=== PATIENT | male | born 1945 | race Caucasian/White ===

== ENCOUNTER → 2017-10-27 | Outpatient (CLI) | payer MEDICARE, MEDICAID ==
[~2017-10-27] MED LIST: ACET-2031 PO; ACET650T40 PO; AMLO-101 PO; AMLO-96 PO; AMOX-559 PO; ASPI-757 PO; CIPR500S3 PO; FLUO-202 PO; GABA-549 PO; GABA300S PO; HYDR-2966 PO; INSU100C14 SQ; IRON150C19 PO; LEVI SUBQ; LEVO88TA43 PO; LEVO88TA45 PO; LISI20TA29 PO; METF-420 PO; METO50TA19 PO; MOX400 PO; NOVOLOG SUBQ; SIMV-54 PO; VANC1.5P20 IV
[2017-10-27 14:29] LABS: PLATELET COUNT, AUTOMATED 130 K/uL (150-450)
--- NOTE | 2017-10-27 15:30 | RADIOLOGY IMAGING REPORT ---
FACILITY: [facility] PATIENT NAME: To Booker : 1945 MR: [id number] V: [id number] EXAM DATE: ORDERING PHYSICIAN: [facility] TECHNOLOGIST: Location: [facility] Patient: To Booker : 1945 Visit/Account:[id number] Date of Sevice: 10/27/2017 KIDNEYS EXAMINATION: Renal ultrasound. History: Renal failure, hypertension, diabetic COMPARISON STUDIES: October 09, 2013 FINDINGS: Kidneys: Right kidney- 11.1 x 5.2 x 5.7 cm Left kidney- 11.8 x 6.5 x 6.2 cm Uniform and symmetric blood flow in each kidney by Doppler ultrasound. Hydronephrosis: none Both kidneys have a lobular contour. The resistive index on the right is elevated at 0.82 and on the left 0.87 Bladder: Prevoid volume 249 mL. Post void residual 10 mL. Bilateral ureteral jets are present. Abdominal aorta and IVC: Aorta and IVC are patent by Doppler ultrasound. IMPRESSION: There is a lobular contour to both kidneys and mildly elevated resistive indices bilaterally Report Dictated By: Sheree Santana MD at 10/27/2017 3:24 PM Report E-Signed By: Sheree Santana MD at 10/27/2017 3:26 PM WSN:[id number]
== END ==
LOC: US 03:08
PROVIDERS: ATTEND Internal Medicine Nephrology
DX: Z13.9 Encounter for screening, unspecified (principal); N28.9 Disorder of kidney and ureter, unspecified
CPT/HCPCS: 36415; 76705; 81001; 82040; 82310; 82374; 82435; 82565; 82570; 82947; 84100; 84132; 84156; 84165; 84295; 84520; 85025; 86334

== ENCOUNTER → 2018-01-01 | Outpatient (REF) | payer MEDICARE, MEDICAID ==
[~2018-01-01] MED LIST changes: -METF-420 PO; +METF-421 PO
== END ==
LOC: ZZSENDIN 14:39
PROVIDERS: ATTEND Podiatrist Foot & Ankle Surgery
DX: L97.512 Non-pressure chronic ulcer of other part of right foot with fat layer exposed (principal)
CPT/HCPCS: 87070

== ENCOUNTER 2018-01-05 14:41 | Emergency (ER) | payer MEDICARE, MEDICAID ==
[2018-01-05] MEDS ORDERED: NOVOLOG SUBQ (15:08)
[2018-01-05] MEDS ORDERED: LEVI SUBQ (15:08)
[2018-01-05 15:26] LABS: PLATELET COUNT, AUTOMATED 127 K/uL (150-450)
--- NOTE | 2018-01-05 15:27 | RADIOLOGY IMAGING REPORT ---
FACILITY: [facility] [place] PATIENT NAME: To Booker : 1945 MR: [id number] V: [id number] EXAM DATE: ORDERING PHYSICIAN: JANEE GANDHI TECHNOLOGIST: Location: [facility] [place] Patient: To Booker : 1945 Visit/Account:[id number] Date of Sevice: 01/05/2018 EXAMINATION: Right foot 3 views HISTORY: Wound on right third toe. COMPARISON: None. FINDINGS: Prior amputation of the fifth ray of the right foot at the level of the metatarsal mid shaft. There are hammertoe deformities of the second, third, and fourth toes. Generalized osteopenia, with m ild scattered degenerative changes. No fracture or dislocation. No radiographic evidence of osteomyel itis. Soft tissue swelling along the right foot. Vascular calcifications. IMPRESSION: 1. No radiographic evidence of osteomyelitis in the right foot, including along the third toe. If cli nically indicated, follow-up MRI would be more sensitive for evaluation of possible osteomyelitis. 2. No acute osseous findings. 3. Prior amputation of the fifth ray at the level of the metatarsal mid shaft. Report Dictated By: Austin Saxena MD at 01/05/2018 3:20 PM Report E-Signed By: Austin Saxena MD at 01/05/2018 3:23 PM WSN:[id number]
[2018-01-05] MEDS ORDERED: AMPICILLIN/SULBACT (*) 3 GM VL 3 GM in NS(*) 0.9% 100 ML BAG 100 ML IVPB ONE (15:35)
[2018-01-05] MEDS ORDERED: CEPH500T7 PO (16:00)
--- NOTE | 2018-01-05 16:04 | ER Report ---
History and Physical Time Seen By MD: 14:55 Hx. of Stated Complaint: wound on R middle toe HPI/ROS CHIEF COMPLAINT: Wound to right third toe HISTORY OF PRESENT ILLNESS: 72-year-old male patient presents to emergency room with complaint of a wound to the right third toe. Patient states that he has been seeing wound care for this. He states that he went to wound care today, was evaluated and referred directly to the emergency room. Patient is diabetic, he states that his blood sugars are not well controlled. He denies having any pain. He does have a history of a left [id number] amputation, also has a history of a right fifth toe amputation. Patient denies any fevers, chills, nausea, vomiting or diarrhea. Patient has not taken any medication for this. REVIEW OF SYSTEMS: Respiratory: No cough, no dyspnea. Cardiovascular: No chest pain, no palpitations. Gastrointestinal: No vomiting, no abdominal pain. Musculoskeletal: As noted above Allergies: Coded Allergies: No Known Drug Allergies (Unverified , 01/24/17) Home Meds Active Scripts Cephalexin 500 Mg Tab (KEFLEX 500 MG TAB) 500 Mg Tablet, 500 MG PO TID, #30 TAB Prov:JANEE GANDHI 01/05/18 Amlodipine Besylate (AMLODIPINE BESYLATE) 5 Mg Tablet, 5 MG PO QDAY, #30 TAB Prov:INDRA LANTIGUA DO 01/28/17 Reported Medications Insulin Aspart (NOVOLOG) 100 Unit/Ml Soln, 12 UNIT SUBQ TID 01/05/18 Insulin Detemir (LEVEMIR) 100 Unit/Ml Injs, 30 UNIT SUBQ BID 01/05/18 Aspirin (ASPIRIN) 325 Mg Tablet, 325 MG PO BID Y for PAIN, TAB 01/24/17 Simvastatin (SIMVASTATIN) 40 Mg Tablet, 40 MG PO HS, TAB 01/24/17 Metoprolol Succinate (METOPROLOL SUCCINATE) 50 Mg Tab.er.24h, 1 TAB PO BID, TAB 01/24/17 Hydrochlorothiazide (HYDROCHLOROTHIAZIDE) 25 Mg Tablet, 1 TAB PO QDAY, TAB 01/24/17 Levothyroxine Sodium (SYNTHROID) 88 Mcg Tablet, 75 MCG PO QDAY Take one tablet by mouth every day. 12/06/13 Gabapentin (GABAPENTIN) 300 Mg Capsule, 300 MG PO BID, CAPSULE Take one capsule by mouth twice each day. 12/06/13 Discontinued Reported Medications Insulin Aspart (NOVOLOG) 100 Unit/Ml Soln, 100 UNIT SUBQ 04/30/14 Insulin Detemir (LEVEMIR) 100 Unit/Ml Injs, 25 UNIT SUBQ BID Inject 25 units of Levemir subcutaneously twice each day. 12/06/13 Past Medical/Surgical History Patient has a past medical history of hypertension, hyperlipidemia, diabetes, hypothyroidism. Patient has a past surgical history of left [id number] amputation, right fifth toe amputation. Patient has a family medical history of cancer, stroke, diabetes. Reviewed Nurses Notes: Yes Hx Smoking: No Smoking Status: Never Smoker Exposure to Second Hand Smoke?: No Hx Substance Use Disorder: No Hx Alcohol Use: No Constitutional Vital Sign - Last 24 Hours 01/05/18 01/05/18 01/05/18 01/05/18 14:41 14:47 14:47 14:56 Temp 97.6 Pulse ??? 63 60 Resp 16 B/P (MAP) 157/80 157/80 (105) Pulse Ox 96 94 O2 Delivery Room Air 01/05/18 01/05/18 01/05/18 01/05/18 15:11 15:26 15:41 15:56 Pulse 62 59 59 58 Pulse Ox 92 92 93 93 01/05/18 01/05/18 01/05/18 01/05/18 15:59 16:04 16:19 16:29 Pulse 56 57 B/P (MAP) 131/79 (96) 141/81 (101) Pulse Ox 93 91 01/05/18 16:34 Pulse ??? Intake and Output 01/05/18 01/05/18 01/06/18 15:00 23:00 07:00 Intake Total 100 ml Balance 100 ml Physical Exam General Appearance: The patient is alert, has no immediate need for airway protection and no current signs of toxicity. ENT: Tympanic membranes are pearly-serna, auditory canals are patent, mucous membranes are moist. Respiratory: Chest is non tender, lungs are clear to auscultation. Cardiac: regular rate and rhythm Gastrointestinal: Abdomen is soft and non tender, no masses, bowel sounds normal. Musculoskeletal: Neck: Neck is supple and non tender. Extremities have full range of motion and are non tender. Skin: No rashes or lesions. Right third toe is erythematous, swollen, has a large wound on the dorsal aspect. DIFFERENTIAL DIAGNOSIS: After history and physical exam differential diagnosis was considered for cellulitis, osteomyelitis. Medical Decision Making Data Points Result Diagram: 01/05/18 1512 01/05/18 1512 Laboratory Hematology Test 01/05/18 15:12 Red Blood Count 4.05 M/uL (4.00-5.60) Mean Corpuscular Volume 90.8 fL (80.0-96.0) Mean Corpuscular Hemoglobin 31.2 pg (26.0-33.0) Mean Corpuscular Hemoglobin Concent 34.4 g/dL (32.0-36.0) Red Cell Distribution Width 13.7 % (11.5-14.5) Mean Platelet Volume 8.1 fL (7.2-11.1) Neutrophils (%) (Auto) 68.9 % (39.4-72.5) Lymphocytes (%) (Auto) 18.1 % (17.6-49.6) Monocytes (%) (Auto) 8.9 % (4.1-12.4) Eosinophils (%) (Auto) 3.0 % (0.4-6.7) Basophils (%) (Auto) 1.1 % (0.3-1.4) Nucleated RBC Relative Count (auto) 0.0 /100WBC Neutrophils # (Auto) 3.5 K/uL (2.0-7.4) Lymphocytes # (Auto) 0.9 K/uL (1.3-3.6) Monocytes # (Auto) 0.5 K/uL (0.3-1.0) Eosinophils # (Auto) 0.2 K/uL (0.0-0.5) Basophils # (Auto) 0.1 K/uL (0.0-0.1) Nucleated RBC Absolute Count (auto) 0.00 K/uL Sodium Level 135 mmol/L (137-145) Potassium Level 4.6 mmol/L (3.5-5.0) Chloride Level 101 mmol/L (98-107) Carbon Dioxide Level 18 mmol/L (22-30) Blood Urea Nitrogen 56 mg/dl (9-21) Creatinine 2.80 mg/dl (0.66-1.25) Glomerular Filtration Rate Calc 22.5 Random Glucose 484 mg/dl (75-110) Calcium Level 8.6 mg/dl (8.4-10.2) Total Bilirubin 0.6 mg/dl (0.2-1.3) Aspartate Amino Transf (AST/SGOT) 16 U/L (0-35) Alanine Aminotransferase (ALT/SGPT) 23 U/L (0-56) Alkaline Phosphatase 171 U/L (0-126) Total Protein 6.2 gm/dl (6.3-8.2) Albumin 3.5 g/dl (3.5-5.0) Chemistry Test 01/05/18 15:12 White Blood Count 5.1 k/uL (4.5-11.0) Red Blood Count 4.05 M/uL (4.00-5.60) Hemoglobin 12.6 g/dL (14.0-18.0) Hematocrit 36.8 % (42.0-52.0) Mean Corpuscular Volume 90.8 fL (80.0-96.0) Mean Corpuscular Hemoglobin 31.2 pg (26.0-33.0) Mean Corpuscular Hemoglobin Concent 34.4 g/dL (32.0-36.0) Red Cell Distribution Width 13.7 % (11.5-14.5) Platelet Count 127 K/uL (150-450) Mean Platelet Volume 8.1 fL (7.2-11.1) Neutrophils (%) (Auto) 68.9 % (39.4-72.5) Lymphocytes (%) (Auto) 18.1 % (17.6-49.6) Monocytes (%) (Auto) 8.9 % (4.1-12.4) Eosinophils (%) (Auto) 3.0 % (0.4-6.7) Basophils (%) (Auto) 1.1 % (0.3-1.4) Nucleated RBC Relative Count (auto) 0.0 /100WBC Neutrophils # (Auto) 3.5 K/uL (2.0-7.4) Lymphocytes # (Auto) 0.9 K/uL (1.3-3.6) Monocytes # (Auto) 0.5 K/uL (0.3-1.0) Eosinophils # (Auto) 0.2 K/uL (0.0-0.5) Basophils # (Auto) 0.1 K/uL (0.0-0.1) Nucleated RBC Absolute Count (auto) 0.00 K/uL Glomerular Filtration Rate Calc 22.5 Calcium Level 8.6 mg/dl (8.4-10.2) Total Bilirubin 0.6 mg/dl (0.2-1.3) Aspartate Amino Transf (AST/SGOT) 16 U/L (0-35) Alanine Aminotransferase (ALT/SGPT) 23 U/L (0-56) Alkaline Phosphatase 171 U/L (0-126) Total Protein 6.2 gm/dl (6.3-8.2) Albumin 3.5 g/dl (3.5-5.0) EKG/Imaging Imaging EXAMINATION: Right foot 3 views HISTORY: Wound on right third toe. COMPARISON: None. FINDINGS: Prior amputation of the fifth ray of the right foot at the level of the metatarsal mid shaft. There are hammertoe deformities of the second, third, and fourth toes. Generalized osteopenia, with mild scattered degenerative changes. No fracture or dislocation. No radiographic evidence of osteomyelitis. Soft tissue swelling along the right foot. Vascular calcifications. IMPRESSION: 1. No radiographic evidence of osteomyelitis in the right foot, including along the third toe. If clinically indicated, follow-up MRI would be more sensitive for evaluation of possible osteomyelitis. 2. No acute osseous findings. 3. Prior amputation of the fifth ray at the level of the metatarsal mid shaft. Report Dictated By: Austin Saxena MD at 01/05/2018 3:20 PM Report E-Signed By: Austin Saxena MD at 01/05/2018 3:23 PM ED Course/Re-evaluation ED Course Patient was admitted to an exam room, history and physical were obtained. Differential diagnoses were considered. On examination patient has a wound to the right third toe. A CBC, CMP, x-ray of the right foot were done. Lab results were unremarkable, patient did have an x-ray which showed skin breakdown with no bony involvement. I discussed the case with the patient and his . I believe that this is fortunately still located in the skin only. Patient did receive a dose of ampicillin/sulbactam here in the emergency room. Patient will be started on Keflex. Patient does have poor renal function as a result of that we will do the Keflex 3 times a day. Patient should follow-up with his primary care provider early next week. He is to follow-up with wound care on Monday. I did press upon the patient that I felt there is very important that he is evaluated in the early part of next week. Patient verbalized understanding and agreement. Decision to Disposition Date: January 05, 2018 Decision to Disposition Time: 16:03 Depart Departure Latest Vital Signs Vital Signs Date Time Temp Pulse Resp B/P (MAP) Pulse Ox O2 Delivery O2 Flow Rate FiO2 01/05/18 16:34 ??? 01/05/18 16:29 141/81 (101) 01/05/18 16:19 91 01/05/18 14:47 97.6 16 Room Air Impression: Primary Impression: Open wound of third toe of right foot Condition: Improved Disposition: HOME OR SELF-CARE New Scripts Cephalexin 500 Mg Tab (KEFLEX 500 MG TAB) 500 Mg Tablet 500 MG PO TID, #30 TAB Prov: JANEE GANDHI 01/05/18 Patient Instructions: Wound Infection (ED) Additional Instructions: Continue with normal activity. Return to the ER if condition worsens. Follow up with the clinic in [place] or Dr. Carreno on Monday or Monday next week. Follow up with Physical Therapy for wound care next week as previously scheduled , I believe next Monday. Take Antibiotics as directed. Continue other normal medications. Problem Qualifiers Primary Impression: Open wound of third toe of right foot Encounter type: initial encounter Qualified Codes: S91.104A - Unspecified open wound of right lesser toe(s) without damage to nail, initial encounter JANEE GANDHI January 05, 2018 16:04
[2018-01-05 16:29] VITALS: BP 141/81
== END 2018-01-05 16:35 | disposition home or self-care (01) ==
LOC: ER 14:42
DX: S91.104A Unspecified open wound of right lesser toe(s) without damage to nail, initial encounter (principal)
CPT/HCPCS: 73630; 85025; 96365; 99284; J0295; J7050; 82040; 82247; 82310; 82374; 82435; 82565; 82947; 84075; 84132; 84155; 84295; 84450; 84460; 84520

== ENCOUNTER 2018-01-26 14:30 | Outpatient (RCR) | payer MEDICARE, MEDICAID ==
--- NOTE | 2017-12-16 07:53 | PT INITIAL EVALUATION ---
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 The patient reports that he was seen by Dr. Carreno earlier this week and referred for PT wound care to include wound on dorsum of R) 3rd toe as well as blister on the R) heel. The pt has a history of L) transtibial amputation, which he reports started as "a blister that went into the bone." REHAB PROBLEM LIST: Open wound of R) 3rd toe, blister of R) plantar heel PREVIOUS MEDICAL HISTORY: PMH of HTN, DM-II, CKD-IV, Dyslipidemia, PVD s/p L-TTA OBJECTIVE: Wound measurements: R) 3rd toe, dorsal DIP joint: 0.6 cm L x 0.5 cm W x 0.3 cm D Blister of R) plantar heel: 2cm L x 2 cm W ASSESSMENT: Pt presents with wound dressing intact from placement on 12/12/17. There is a pocket of drainage under the calcium alginate over the wound bed. PT completed conservative, selective debridement of non-viable tissue and periwound callous to the depth of the deep tissue. Wound base revealed with a hard end feel present at the base. The wound was cleansed with sterile saline and gauze and then packed with moistened collagen with AG. Wound was covered with a speciality absorptive pad, held in place with a gauze roll. There is a 2cm L x 2cm W blister on the R) heel that is intact at this time with no surrounding erythema. This was covered with a tegaderm dressing to allow for further monitoring. PT instructed the patient and patient's spouse on effective donning/doffing of sock to prevent disruption of the dressing. The pt reports that he feels that his large hunting boots allow for increased room in the toe box, but he does report that his feet are getting "hot". PT suggested following up with Dr. Carreno if he is unable to find a functional pair of shoes that effectively offload the area. The patient will benefit from skilled PT wound care to include sharps debridement as well advanced wound care product selection and application to facilitate wound healing. Of note, the patient's reports that the patient had his blood drawn at the [facility] yesterday with a blood glucose measured at 938. The patient was recommended for admission to [facility], but refused. He reports that he plans to continue to take his medications and will f/u with PCP on Monday. A message was left with Dr. Carreno regarding change in patient's medical status. Short Term Goals 1: Pt to maintain clean, dry and intact dressing in between wound care visits. 2: Wound to demonstrate 100% granulation tissue across the wound base with no s/ s of infection. 3: Wound to gradually epithelialize from the edges inwards and demonstrate 100% closure. 4: Pt and spouse to be educated on preventative foot care to prevent further breakdown. 5: Pt to follow up with appropriate medical personnel for continued management of co-morbidities Patient's Goals Wound healing PLAN: Patient to be seen for skilled PT wound care to include sharps debridement as well advanced wound care product selection and application to facilitate wound healing 1-2x/week for up to 90 days Thank you for this referral. If you have any questions, comments, or concerns about this report or plan, please contact me at . Kyara Calderon, PT, DPT CYNDYD
[~2018-01-26 14:30] MED LIST changes: +CEPH500T7 PO
--- NOTE | 2018-02-23 16:18 | PT PLAN OF CARE ---
Physician: Dr. 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 GOALS: 1: Pt to maintain clean, dry and intact dressing in between wound care visits. 2: Wound to demonstrate 100% granulation tissue across the wound base with no s/ s of infection. 3: Wound to gradually epithelialize from the edges inwards and demonstrate 100% closure. 4: Pt and spouse to be educated on preventative foot care to prevent further breakdown. 5: Pt to follow up with appropriate medical personnel for continued management of co-morbidities PATIENT'S GOAL: Wound healing Status of Patient's Goals: Not met; pt demos inability to comply with treatment and has not been seen in 4 weeks, despite attempts to reschedule his visits and coordinate care with PCP. Patient Compliance: Poor Prognosis: Poor Reasons for continuing therapy: None; unable to establish contact with pt, as he does not have voicemail set up. Pt has not attended his regularly scheduled appointments for the past 4 weeks. Thank you for this referral. If you have any questions, comments, or concerns about this report or plan, please contact me at . Daniela Winters, PT, MPT [facility]
== END 2018-01-26 18:00 | disposition home or self-care (01) ==
LOC: PT 14:30
PROVIDERS: ATTEND Podiatrist Foot & Ankle Surgery
DX: L97.512 Non-pressure chronic ulcer of other part of right foot with fat layer exposed (principal); E11.9 Type 2 diabetes mellitus without complications; N18.4 Chronic kidney disease, stage 4 (severe); E78.5 Hyperlipidemia, unspecified
CPT/HCPCS: 97161

== ENCOUNTER 2018-05-13 07:51 | Emergency (ER) | payer MEDICARE, MEDICAID ==
[~2018-05-13 07:51] MED LIST changes: +AMLO-111 PO; -AMLO-96 PO; -METF-421 PO; +METF-452 PO
[2018-05-13] MEDS ORDERED: LISI-374 PO (08:09)
[2018-05-13] MEDS ORDERED: FURO-45 PO (08:09)
--- NOTE | 2018-05-13 08:09 | ER Report ---
History and Physical Time Seen By MD: 08:08 Hx. of Stated Complaint: PT PRESENTS WITH ULCRERS ON HIS R FOOT. 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 He presents to the ER this morning with an ulcer on his right heel. Unsure how long this has been there. Sensation is poor from diabetic neuropathy. He has been feeling pain for about a week now, so ulcer has probably been there for several weeks. Came to attention when having his toenails cut today and smelled a bad smell there. He has toenails cut about once a month. Sugars variable, but often run high. 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 He denies any other problems. REVIEW OF SYSTEMS: Constitutional: No fever or chills. Eyes: No vision changes. ENT: No sore throat. No congestion. Cardiovascular: No chest pain. No palpitations. Respiratory: No cough. No shortness of breath. Gastrointestinal: No abdominal pain. No nausea or vomiting. Genitourinary: No dysuria. No frequency Musculoskeletal: No back pain. No other extremity pain Skin: No rashes or other skin problems. Neurological: Neuropathy as noted. Allergies: Coded Allergies: No Known Drug Allergies (Unverified , 05/13/18) Home Meds Active Scripts Sulfamethoxazole/Trimet 800-160 Mg Tab (BACTRIM DS TABLET) 1 Each Tablet, 1 TAB PO Q12H, #20 TAB 0 Refills Prov:NATALY EASLEY MD 05/13/18 Cephalexin 500 Mg Tab (KEFLEX 500 MG TAB) 500 Mg Tablet, 500 MG PO TID, #30 TAB Prov:JANEE GANDHI 01/05/18 Amlodipine Besylate (AMLODIPINE BESYLATE) 5 Mg Tablet, 5 MG PO QDAY, #30 TAB Prov:INDRA LANTIGUA DO 01/28/17 Reported Medications Lisinopril (LISINOPRIL) 40 Mg Tablet, 40 MG PO QDAY, TAB 05/13/18 Furosemide (FUROSEMIDE) 20 Mg Tablet, 1 TAB PO QDAY, TAB 05/13/18 Insulin Aspart (NOVOLOG) 100 Unit/Ml Soln, 12 UNIT SUBQ TID 01/05/18 Insulin Detemir (LEVEMIR) 100 Unit/Ml Injs, 30 UNIT SUBQ BID 01/05/18 Aspirin (ASPIRIN) 325 Mg Tablet, 325 MG PO BID PRN for PAIN, TAB 01/24/17 Simvastatin (SIMVASTATIN) 40 Mg Tablet, 40 MG PO HS, TAB 01/24/17 Metoprolol Succinate (METOPROLOL SUCCINATE) 50 Mg Tab.er.24h, 1 TAB PO BID, TAB 01/24/17 Hydrochlorothiazide (HYDROCHLOROTHIAZIDE) 25 Mg Tablet, 1 TAB PO QDAY, TAB 01/24/17 Levothyroxine Sodium (SYNTHROID) 88 Mcg Tablet, 100 MCG PO QDAY Take one tablet by mouth every day. 12/06/13 Gabapentin (GABAPENTIN) 300 Mg Capsule, 300 MG PO BID, CAPSULE Take one capsule by mouth twice each day. 12/06/13 Reviewed Nurses Notes: Yes Hx Smoking: No Smoking Status: Never Smoker Exposure to Second Hand Smoke?: No Hx Substance Use Disorder: No Hx Alcohol Use: No Constitutional Vital Sign - Last 24 Hours 05/13/18 05/13/18 05/13/18 05/13/18 07:51 07:55 07:56 08:00 Temp 97.7 Pulse ??? 49 Resp 20 B/P (MAP) 178/94 178/94 (122) 165/89 (114) Pulse Ox 97 O2 Delivery Room Air 05/13/18 05/13/18 08:21 08:51 Pulse 47 48 Resp 9 9 Pulse Ox 95 95 Physical Exam General Appearance: The patient is alert. No acute distress. Non-toxic in appearance. Eyes: Pupils are equal, round. No pallor, injection or icterus. ENT: Mucous membranes are moist. Respiratory: Breathing easily and unlabored. Lungs are clear to auscultation. Cardiovascular: Bradycardia, but regular. No murmurs, gallops or rubs. Capillary refill mildly slowed in right foot. No edema. Gastrointestinal: Abdomen is soft and non tender. Nondistended. Normal active bowel sounds. Neurological: Alert and oriented x3. Has some sensation in foot. Some pain with palpating the ulcer on the heel. Skin: Dry skin. Ulcer of the right heel. deep to muscle and fascia on heel. Some undermining of the skin. Foul smell. No discharge noted. Musculoskeletal: Mild discomfort with palpation of the ulcer, but no major pain. Full range of motion. DIFFERENTIAL DIAGNOSIS: After history and physical exam, differential diagnosis was considered for diabetic foot ulcer Medical Decision Making Data Points Result Diagram: 05/13/18 0841 05/13/18 0841 Laboratory Hematology Test 05/13/18 08:39 05/13/18 08:41 Whole Blood Glucose 124 mg/DL (75-110) Red Blood Count 4.91 M/uL (4.00-5.60) Mean Corpuscular Volume 89.6 fL (80.0-96.0) Mean Corpuscular Hemoglobin 30.1 pg (26.0-33.0) Mean Corpuscular Hemoglobin Concent 33.6 g/dL (32.0-36.0) Red Cell Distribution Width 13.8 % (11.5-14.5) Mean Platelet Volume 8.5 fL (7.2-11.1) Neutrophils (%) (Auto) 77.5 % (39.4-72.5) Lymphocytes (%) (Auto) 12.7 % (17.6-49.6) Monocytes (%) (Auto) 6.2 % (4.1-12.4) Eosinophils (%) (Auto) 2.4 % (0.4-6.7) Basophils (%) (Auto) 1.2 % (0.3-1.4) Nucleated RBC Relative Count (auto) 0.1 /100WBC Neutrophils # (Auto) 6.8 K/uL (2.0-7.4) Lymphocytes # (Auto) 1.1 K/uL (1.3-3.6) Monocytes # (Auto) 0.5 K/uL (0.3-1.0) Eosinophils # (Auto) 0.2 K/uL (0.0-0.5) Basophils # (Auto) 0.1 K/uL (0.0-0.1) Nucleated RBC Absolute Count (auto) 0.01 K/uL Erythrocyte Sedimentation Rate 10 mm/HOUR (0-20) Sodium Level 138 mmol/L (137-145) Potassium Level 4.1 mmol/L (3.5-5.0) Chloride Level 101 mmol/L (98-107) Carbon Dioxide Level 24 mmol/L (22-30) Blood Urea Nitrogen 52 mg/dl (9-21) Creatinine 2.50 mg/dl (0.66-1.25) Glomerular Filtration Rate Calc 25.6 Random Glucose 128 mg/dl (75-110) Calcium Level 8.8 mg/dl (8.4-10.2) Total Bilirubin 0.6 mg/dl (0.2-1.3) Aspartate Amino Transf (AST/SGOT) 16 U/L (0-35) Alanine Aminotransferase (ALT/SGPT) 24 U/L (0-56) Alkaline Phosphatase 162 U/L (0-126) C-Reactive Protein 1.6 mg/dl (<1.0) Total Protein 7.4 g/dl (6.3-8.2) Albumin 4.0 g/dl (3.5-5.0) Chemistry Test 05/13/18 08:39 05/13/18 08:41 Whole Blood Glucose 124 mg/DL (75-110) White Blood Count 8.8 k/uL (4.5-11.0) Red Blood Count 4.91 M/uL (4.00-5.60) Hemoglobin 14.8 g/dL (14.0-18.0) Hematocrit 44.0 % (42.0-52.0) Mean Corpuscular Volume 89.6 fL (80.0-96.0) Mean Corpuscular Hemoglobin 30.1 pg (26.0-33.0) Mean Corpuscular Hemoglobin Concent 33.6 g/dL (32.0-36.0) Red Cell Distribution Width 13.8 % (11.5-14.5) Platelet Count 178 K/uL (150-450) Mean Platelet Volume 8.5 fL (7.2-11.1) Neutrophils (%) (Auto) 77.5 % (39.4-72.5) Lymphocytes (%) (Auto) 12.7 % (17.6-49.6) Monocytes (%) (Auto) 6.2 % (4.1-12.4) Eosinophils (%) (Auto) 2.4 % (0.4-6.7) Basophils (%) (Auto) 1.2 % (0.3-1.4) Nucleated RBC Relative Count (auto) 0.1 /100WBC Neutrophils # (Auto) 6.8 K/uL (2.0-7.4) Lymphocytes # (Auto) 1.1 K/uL (1.3-3.6) Monocytes # (Auto) 0.5 K/uL (0.3-1.0) Eosinophils # (Auto) 0.2 K/uL (0.0-0.5) Basophils # (Auto) 0.1 K/uL (0.0-0.1) Nucleated RBC Absolute Count (auto) 0.01 K/uL Erythrocyte Sedimentation Rate 10 mm/HOUR (0-20) Glomerular Filtration Rate Calc 25.6 Calcium Level 8.8 mg/dl (8.4-10.2) Total Bilirubin 0.6 mg/dl (0.2-1.3) Aspartate Amino Transf (AST/SGOT) 16 U/L (0-35) Alanine Aminotransferase (ALT/SGPT) 24 U/L (0-56) Alkaline Phosphatase 162 U/L (0-126) C-Reactive Protein 1.6 mg/dl (<1.0) Total Protein 7.4 g/dl (6.3-8.2) Albumin 4.0 g/dl (3.5-5.0) Microbiology Microbiology Date/Time Source Procedure Growth Status 05/13/18 09:07 Blood Blood Culture - Preliminary NO GROWTH SO FAR, SET LATE. REINCUBATED Resulted 05/13/18 08:41 Blood Blood Culture - Preliminary NO GROWTH SO FAR, SET LATE. REINCUBATED Resulted EKG/Imaging Imaging CALCANEUS (HEEL) RIGHT HISTORY: Diabetic ulcer COMPARISON: 01/05/2018 FINDINGS: No evidence of acute fracture or dislocation. No destructive bone lesion. No aggressive periostitis. Bohler angle is well maintained. Dorsal spurring at the talonavicular joint. Moderate arterial calcifications. IMPRESSION: 1. No destructive bone lesion or aggressive periostitis. Report Dictated By: Zheng Gauthier MD at 05/13/2018 9:22 AM ED Course/Re-evaluation Clinical Indication for ER IV: Hydration, IV Access ED Course Labs show a normal white count and ESR. Mild elevation of CRP. Renal insufficiency from diabetic nephropathy. Overall doing okay. Recommended follow- up tomorrow with the wound clinic and to call dr. Patrick's office for follow- up. Started on Bactrim DS and given IV Vancomycin 1g today. Will repeat the Vancomycin tomorrow as well. X-ray of the heel is negative for signs of osteomyelitis. Spent some time with sharp debridement of surrounding skin, but left the wound base alone. Cultures of blood and wound obtained. Decision to Disposition Date: May 13, 2018 Decision to Disposition Time: 10:45 Depart Departure Latest Vital Signs Vital Signs Date Time Temp Pulse Resp B/P (MAP) Pulse Ox O2 Delivery O2 Flow Rate FiO2 05/13/18 08:51 48 9 95 05/13/18 08:00 165/89 (114) 05/13/18 07:55 97.7 Room Air Impression: Primary Impression: Diabetic foot ulcer Condition: Improved Disposition: HOME OR SELF-CARE New Scripts Sulfamethoxazole/Trimet 800-160 Mg Tab (BACTRIM DS TABLET) 1 Each Tablet 1 TAB PO Q12H, #20 TAB 0 Refills Prov: NATALY EASLEY MD 05/13/18 Patient Instructions: Diabetic Foot Ulcers (ED) Additional Instructions: Take the antibiotic Bactrim DS twice a day for 10 days. Call and make an appointment to see the wound care nurse tomorrow here at the hospital. Call Dr. Patrick's office to make an appointment, hopefully for early in the week depending on his availability. We would like to have you get another dose of IV Vancomycin tomorrow while here at the hospital. Wash the wound with soap and water tonight and apply another bandage. 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
[2018-05-13 08:52] LABS: PLATELET COUNT, AUTOMATED 178 K/uL (150-450)
--- NOTE | 2018-05-13 09:40 | RADIOLOGY IMAGING REPORT ---
FACILITY: [facility] [place]IENT NAME: To Booker : 1945 MR: [id number] V: [id number] EXAM DATE: ORDERING PHYSICIAN: NATALY EASLEY TECHNOLOGIST: Location: [facility] [place] Patient: To Booker : 1945 Visit/Account:[id number] Date of Sevice: 05/13/2018 CALCANEUS (HEEL) RIGHT HISTORY: Diabetic ulcer COMPARISON: 01/05/2018 FINDINGS: No evidence of acute fracture or dislocation. No destructive bone lesion. No aggressive per iostitis. Bohler angle is well maintained. Dorsal spurring at the talonavicular joint. Moderate arter ial calcifications. IMPRESSION: 1. No destructive bone lesion or aggressive periostitis. Report Dictated By: Zheng Gauthier MD at 05/13/2018 9:22 AM Report E-Signed By: Zheng Gauthier MD at 05/13/2018 9:35 AM WSN:[id number]
[2018-05-13] MEDS ORDERED: TRIMETH/SULFA DS 160-800MG TAB PO ONE (10:05)
[2018-05-13] MEDS ORDERED: VANCOMYCIN 1 GM ADDVIAL 1 GM in NS(*) 0.9% 250 ML ADDVAN BAG 250 ML IVPB ONE (10:05)
[2018-05-13] MEDS ORDERED: SULF-198 PO (10:48)
[2018-05-13 11:00] VITALS: BP 155/73
== END 2018-05-13 11:25 | disposition home or self-care (01) ==
LOC: ER 08:19
DX: E11.621 Type 2 diabetes mellitus with foot ulcer (principal); B95.61 Methicillin susceptible Staphylococcus aureus infection as the cause of diseases classified elsewhere
CPT/HCPCS: 36415; 36416; 73650; 82948; 85025; 85651; 86140; 87040; 87070; 87073; 96365; 99283; A9270; J3370; J7050; 82040; 82247; 82310; 82374; 82435; 82565; 82947; 84075; 84132; 84155; 84295; 84450; 84460; 84520; 87077; 87186

== ENCOUNTER 2018-05-18 20:52 | Inpatient (IN) | payer MEDICARE ==
[~2018-05-18] VITALS: Ht 185.4 cm; Wt 102.7 kg
[~2018-05-18 20:52] MED LIST changes: +FURO-45 PO; +LISI-374 PO; +SULF-198 PO
[2018-05-18] MEDS ORDERED: NS(*) 0.9% 1000 ML BAG 1,000 ML IV ONE ×2 (21:24→22:30)
--- NOTE | 2018-05-18 21:24 | ER Report ---
History and Physical Time Seen By : 21:21 Hx. of Stated Complaint: PATIENT HAS INCREASED PAIN AND REDNESS IN HIS RIGHT FOOT, BLOOD SUGARS ARE "OUT OF CONTROL"; PATIENT WAS SEEN IN ER ON MONDAY AND CAME BACK FOR A FOLLOW UP ON MON. WITH DR. CRAMER; HPI/ROS CHIEF COMPLAINT: Increased redness and swelling in his right foot HISTORY OF PRESENT ILLNESS: 72-year-old male diabetic presents to the ER complaining of increased redness and swelling to his right foot. Patient's undergoing treatment for diabetic ulcer of his right heel. He was seen by Dr. Patrick a few days ago. There is a consultation from wound care. He was seen in the ER prior to that on 05/13/18 had extensive evaluation. X-rays were unremarkable for evidence of osteal. His white count was normal. He received vancomycin that day and the following day IV. He was discharged with prescription for Bactrim DS. Patient's been doing well until tonight when he noticed significant erythema over the forefoot extending up into his leg. He's been feeling lethargic. Having fever and chills. He also describes Rigor today prior to coming in. On arrival is a fever to 104 and his glucoses over 500. 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 REVIEW OF SYSTEMS: Respiratory: No cough, no dyspnea. Cardiovascular: No chest pain, no palpitations. Gastrointestinal: No vomiting, no abdominal pain. Musculoskeletal: No back pain. Allergies: Coded Allergies: No Known Drug Allergies (Unverified , 05/19/18) Home Meds Active Scripts Sulfamethoxazole/Trimet 800-160 Mg Tab (BACTRIM DS TABLET) 1 Each Tablet, 1 TAB PO Q12H, #20 TAB 0 Refills Prov:NATALY EASLEY MD 05/13/18 Cephalexin 500 Mg Tab (KEFLEX 500 MG TAB) 500 Mg Tablet, 500 MG PO TID, #30 TAB Prov:JANEE GANDHI 01/05/18 Amlodipine Besylate (AMLODIPINE BESYLATE) 5 Mg Tablet, 5 MG PO QDAY, #30 TAB Prov:INDRA LANTIGUA DO 01/28/17 Reported Medications Insulin Detemir (LEVEMIR) 100 Unit/Ml Injs, 33 UNIT SUBQ BID 05/19/18 Insulin Aspart (NOVOLOG) 100 Unit/Ml Soln, 14 UNIT SUBQ TID 05/19/18 Gabapentin (GABAPENTIN) 300 Mg Capsule, 300 MG PO DAILY, CAPSULE 05/19/18 Lisinopril (LISINOPRIL) 40 Mg Tablet, 40 MG PO QDAY, TAB 05/13/18 Furosemide (FUROSEMIDE) 20 Mg Tablet, 1 TAB PO QDAY, TAB 05/13/18 Aspirin (ASPIRIN) 325 Mg Tablet, 325 MG PO BID PRN for PAIN, TAB 01/24/17 Simvastatin (SIMVASTATIN) 40 Mg Tablet, 40 MG PO HS, TAB 01/24/17 Metoprolol Succinate (METOPROLOL SUCCINATE) 50 Mg Tab.er.24h, 1 TAB PO BID, TAB 01/24/17 Hydrochlorothiazide (HYDROCHLOROTHIAZIDE) 25 Mg Tablet, 1 TAB PO QDAY, TAB 01/24/17 Levothyroxine Sodium (SYNTHROID) 88 Mcg Tablet, 100 MCG PO QDAY Take one tablet by mouth every day. 12/06/13 Discontinued Reported Medications Insulin Aspart (NOVOLOG) 100 Unit/Ml Soln, 12 UNIT SUBQ TID 01/05/18 Insulin Detemir (LEVEMIR) 100 Unit/Ml Injs, 30 UNIT SUBQ BID 01/05/18 Gabapentin (GABAPENTIN) 300 Mg Capsule, 300 MG PO BID, CAPSULE Take one capsule by mouth twice each day. 12/06/13 Past Medical/Surgical History Patient has a past medical history of hypertension, hyperlipidemia, diabetes, hypothyroidism. Patient has a past surgical history of left [id number] amputation, right fifth toe amputation. Patient has a family medical history of cancer, stroke, diabetes. Reviewed Nurses Notes: Yes Old Medical Records Reviewed: Yes Hx Smoking: No Smoking Status: Never Smoker Exposure to Second Hand Smoke?: No Hx Substance Use Disorder: No Hx Alcohol Use: No Constitutional Vital Sign - Last 24 Hours 05/18/18 05/18/18 05/18/18 05/18/18 20:58 21:06 21:07 21:15 Temp 104.1 Pulse 87 Resp 21 B/P (MAP) 160/82 (108) 160/82 145/78 (100) Pulse Ox 91 O2 Delivery Nasal Cannula O2 Flow Rate 2.0 05/18/18 05/18/18 05/18/18 05/18/18 21:22 21:30 21:45 21:52 Pulse 87 88 Resp 16 15 B/P (MAP) 144/85 (104) 150/79 (102) Pulse Ox 93 93 05/18/18 05/18/18 05/18/18 05/18/18 22:00 22:15 22:22 22:30 Pulse 86 Resp 21 B/P (MAP) 141/69 (93) 118/72 (87) 122/71 (88) Pulse Ox 93 05/18/18 05/18/18 05/18/18 05/18/18 22:45 22:45 23:00 23:15 Pulse 87 85 Resp 14 16 B/P (MAP) 145/68 (93) 145/68 (93) 132/76 (94) 120/58 (78) Pulse Ox 92 95 05/19/18 05/19/18 05/19/18 05/19/18 01:00 01:15 01:30 01:45 Pulse 84 82 Resp 21 21 B/P (MAP) 118/75 (89) 121/71 (88) 127/72 (90) 123/77 (92) Pulse Ox 89 91 05/19/18 01:55 Pulse 83 Physical Exam General Appearance: The patient is alert, has no immediate need for airway protection and no current signs of toxicity. Lethargic, fever to 104. [place] oriented 3, HEENT Pupils equal and round no injection. Oropharynx with dry mucous membranes, no erythema or exudate Respiratory: Chest is non tender, lungs are clear to auscultation. No wheezing or rails Cardiac: regular rate and rhythm, no murmur Gastrointestinal: Abdomen is soft and non tender, no masses, bowel sounds normal. Musculoskeletal: Neck: Neck is supple and non tender. No lymphadenopathy Extremities have full range of motion and are non tender. BKA left lower extremity, right lower extremity with gross erythema over the forefoot extending just above the ankle. It is warm to the touch. 1 plus edema noted. There is a large heel ulcer which appears without signs of infection Skin: No rashes or lesions. DIFFERENTIAL DIAGNOSIS: After history and physical exam differential diagnosis was considered for adult fever including but not limited to viral syndromes including influenza, urinary tract infection, cellulitis, osteomyelitis, p neumonia and sepsis. Medical Decision Making Data Points Result Diagram: 05/18/18210905/18/182109 Laboratory Hematology Test 05/18/18 21:10 05/19/18 00:58 05/19/18 01:11 Red Blood Count 4.31 M/uL (4.00-5.60) Mean Corpuscular Volume 89.2 fL (80.0-96.0) Mean Corpuscular Hemoglobin 29.6 pg (26.0-33.0) Mean Corpuscular Hemoglobin Concent 33.2 g/dL (32.0-36.0) Red Cell Distribution Width 14.3 % (11.5-14.5) Mean Platelet Volume 8.9 fL (7.2-11.1) Neutrophils (%) (Auto) 88.0 % (39.4-72.5) Lymphocytes (%) (Auto) 3.5 % (17.6-49.6) Monocytes (%) (Auto) 5.5 % (4.1-12.4) Eosinophils (%) (Auto) 2.3 % (0.4-6.7) Basophils (%) (Auto) 0.7 % (0.3-1.4) Nucleated RBC Relative Count (auto) 0.0 /100WBC Neutrophils # (Auto) 8.3 K/uL (2.0-7.4) Lymphocytes # (Auto) 0.3 K/uL (1.3-3.6) Monocytes # (Auto) 0.5 K/uL (0.3-1.0) Eosinophils # (Auto) 0.2 K/uL (0.0-0.5) Basophils # (Auto) 0.1 K/uL (0.0-0.1) Nucleated RBC Absolute Count (auto) 0.00 K/uL Erythrocyte Sedimentation Rate 42 mm/HOUR (0-20) Sodium Level 127 mmol/L (137-145) Potassium Level 5.7 mmol/L (3.5-5.0) Chloride Level 95 mmol/L (98-107) Carbon Dioxide Level 18 mmol/L (22-30) Blood Urea Nitrogen 67 mg/dl (9-21) Creatinine 4.10 mg/dl (0.66-1.25) Glomerular Filtration Rate Calc 14.5 Random Glucose 548 mg/dl (75-110) Lactate 2.8 mmol/L (0.7-2.1) Calcium Level 8.5 mg/dl (8.4-10.2) Total Bilirubin 0.6 mg/dl (0.2-1.3) Aspartate Amino Transf (AST/SGOT) 16 U/L (0-35) Alanine Aminotransferase (ALT/SGPT) 24 U/L (0-56) Alkaline Phosphatase 174 U/L (0-126) C-Reactive Protein 2.7 mg/dl (<1.0) Total Protein 6.6 g/dl (6.3-8.2) Albumin 3.6 g/dl (3.5-5.0) Whole Blood Glucose 145 mg/DL (75-110) Urine Color Yellow Urine Clarity Clear Urine pH 5.0 pH (4.8-9.5) Urine Specific [place] 1.012 Urine Protein 100 mg/dL (NEGATIVE) Urine Glucose (UA) 500 mg/dL (NEGATIVE) Urine Ketones Negative mg/dL (NEGATIVE) Urine Blood Negative (NEGATIVE) Urine Nitrite Negative (NEGATIVE) Urine Bilirubin Negative (NEGATIVE) Urine Urobilinogen Negative mg/dL (0.2-1.9) Urine Leukocyte Esterase Negative (NEGATIVE) Urine RBC <1 /HPF (0-2/HPF) Urine WBC 2 /HPF (0-5/HPF) Urine Squamous Epithelial Cells Few /LPF (NONE-FEW) Urine Bacteria Few /HPF (NONE-FEW) Urine Mucus None /HPF (NONE-FEW) Chemistry Test 05/18/18 21:10 05/19/18 00:58 05/19/18 01:11 White Blood Count 9.5 k/uL (4.5-11.0) Red Blood Count 4.31 M/uL (4.00-5.60) Hemoglobin 12.8 g/dL (14.0-18.0) Hematocrit 38.4 % (42.0-52.0) Mean Corpuscular Volume 89.2 fL (80.0-96.0) Mean Corpuscular Hemoglobin 29.6 pg (26.0-33.0) Mean Corpuscular Hemoglobin Concent 33.2 g/dL (32.0-36.0) Red Cell Distribution Width 14.3 % (11.5-14.5) Platelet Count 162 K/uL (150-450) Mean Platelet Volume 8.9 fL (7.2-11.1) Neutrophils (%) (Auto) 88.0 % (39.4-72.5) Lymphocytes (%) (Auto) 3.5 % (17.6-49.6) Monocytes (%) (Auto) 5.5 % (4.1-12.4) Eosinophils (%) (Auto) 2.3 % (0.4-6.7) Basophils (%) (Auto) 0.7 % (0.3-1.4) Nucleated RBC Relative Count (auto) 0.0 /100WBC Neutrophils # (Auto) 8.3 K/uL (2.0-7.4) Lymphocytes # (Auto) 0.3 K/uL (1.3-3.6) Monocytes # (Auto) 0.5 K/uL (0.3-1.0) Eosinophils # (Auto) 0.2 K/uL (0.0-0.5) Basophils # (Auto) 0.1 K/uL (0.0-0.1) Nucleated RBC Absolute Count (auto) 0.00 K/uL Erythrocyte Sedimentation Rate 42 mm/HOUR (0-20) Glomerular Filtration Rate Calc 14.5 Lactate 2.8 mmol/L (0.7-2.1) Calcium Level 8.5 mg/dl (8.4-10.2) Total Bilirubin 0.6 mg/dl (0.2-1.3) Aspartate Amino Transf (AST/SGOT) 16 U/L (0-35) Alanine Aminotransferase (ALT/SGPT) 24 U/L (0-56) Alkaline Phosphatase 174 U/L (0-126) C-Reactive Protein 2.7 mg/dl (<1.0) Total Protein 6.6 g/dl (6.3-8.2) Albumin 3.6 g/dl (3.5-5.0) Whole Blood Glucose 145 mg/DL (75-110) Urine Color Yellow Urine Clarity Clear Urine pH 5.0 pH (4.8-9.5) Urine Specific [place] 1.012 Urine Protein 100 mg/dL (NEGATIVE) Urine Glucose (UA) 500 mg/dL (NEGATIVE) Urine Ketones Negative mg/dL (NEGATIVE) Urine Blood Negative (NEGATIVE) Urine Nitrite Negative (NEGATIVE) Urine Bilirubin Negative (NEGATIVE) Urine Urobilinogen Negative mg/dL (0.2-1.9) Urine Leukocyte Esterase Negative (NEGATIVE) Urine RBC <1 /HPF (0-2/HPF) Urine WBC 2 /HPF (0-5/HPF) Urine Squamous Epithelial Cells Few /LPF (NONE-FEW) Urine Bacteria Few /HPF (NONE-FEW) Urine Mucus None /HPF (NONE-FEW) Urinalysis Test 05/19/18 01:11 Urine Color Yellow Urine Clarity Clear Urine pH 5.0 pH (4.8-9.5) Urine Specific [place] 1.012 Urine Protein 100 mg/dL (NEGATIVE) Urine Glucose (UA) 500 mg/dL (NEGATIVE) Urine Ketones Negative mg/dL (NEGATIVE) Urine Blood Negative (NEGATIVE) Urine Nitrite Negative (NEGATIVE) Urine Bilirubin Negative (NEGATIVE) Urine Urobilinogen Negative mg/dL (0.2-1.9) Urine Leukocyte Esterase Negative (NEGATIVE) Urine RBC <1 /HPF (0-2/HPF) Urine WBC 2 /HPF (0-5/HPF) Urine Squamous Epithelial Cells Few /LPF (NONE-FEW) Urine Bacteria Few /HPF (NONE-FEW) Urine Mucus None /HPF (NONE-FEW) EKG/Imaging Imaging X-ray: Single view portable chest x-ray was obtained. I viewed the images myself on the PACS system. My interpretation of the images is: There is bilateral atelectasis, no jill infiltrates. The radiologist interpretation had no clinically significant variation from this interpretation. Results: MRI of the right foot, rule out osteomyelitis was obtained. The results of the study are MRI right foot Indication: Foot ulcers. Evaluate for osteomyelitis. Comparison: None available Technique: 2 plantar, multisequence MRI examination is performed of the right foot without contrast. Markers were placed at the sites of the reported ulcers. Findings: Beginning first with the hindfoot, there is a posterior plantar heel ulcer. There is associated skin thickening in this location and there is edema within the underlying subcutaneous fatty tissues. The subcutaneous edema extends to the level of the plantar fascia origins particularly along the origin of the lateral band of the plantar fascia. No bone destruction. No marrow edema. There is no MR evidence of osteomyelitis. No fluid collection in this location. The plantar fascia origins do appear intact. The marrow pattern of the distal tibia and fibula is normal. The marrow pattern of the talus is normal. There is mild tibiotalar joint and posterior subtalar joint osteoarthritis present. There is a small tibiotalar joint effusion. With respect to the midfoot, no ulcers are seen. There is multifocal mid foot osteoarthritis present most pronounced at the calcaneocuboid and talonavicular joints. No evidence of midfoot stress reaction or fracture. With respect to the forefoot, there has been a fifth toe amputation through the proximal shaft of the fifth metatarsal. There are markers associated with the plantar surface of the third and fourth metatarsal heads as well as the plantar surfaces of the third and fourth toes. No evidence to suggest osteomyelitis of the metatarsals. The middle phalanx of the third toe is abnormally shaped. Compared to plain films from 01/05/2018, this is a new finding. Has there been resection of the middle phalanx of the third toe? There is subcutaneous edema involving the third toe. Clinical correlation is necessary. If there has not been surgery, consideration must be given to a fracture deformity. Depending on the ulcer location, osteomyelitis and bone destruction must be considered. Unfortunately, the distal toes are not optimally evaluated due to coil positioning. Distal phalanges of several toes are not included in the [id number]. There is dorsal subcutaneous edema involving the forefoot. No well-defined fluid collection. There is atrophy of the intrinsic musculature the foot likely reflecting chronic denervation changes. IMPRESSION: 1. Right plantar heel ulcer with suspected cellulitis and with underlying subcutaneous edema. No evidence of fluid collection or calcaneal osteomyelitis. 2. Abnormal appearance of the middle phalanx of the third toe when compared to prior plain films. Phalanges of the toes are not optimally evaluated due to coil positioning. Consider plain film correlation. This may represent a third toe middle phalanx fracture or interval surgical debridement. Osteomyelitis cannot be excluded. 3. Hindfoot, midfoot and first metatarsophalangeal joint osteoarthritis as reported above. 4. Fatty atrophy of the intrinsic musculature of the foot consistent with chronic denervation change. The study was read by the radiologist. I viewed the images myself on the PACS system. ED Course/Re-evaluation Clinical Indication for ER IV: Hydration, IV Access ED Course Patient was admitted to an examination room. H&P was done. The differential diagnoses was considered. Patient with an acute fever to 104. He's giving chills and riders and a fever which would be suspicious for sepsis/bacteremia. Lactate is elevated at 2.8. His white blood cell counts normal with a left shift. Patient's pancultured. He is currently taking Bactrim twice a day. He received 2 doses of vancomycin approximately 4 days ago. Patient was seen in consultation by Dr. Cramer. He's been referred for wound care. Patient now notes worsening of his case. Patient with a last 24 hours. He's been lethargic and lying in bed. His glucose was unreadable at home on his glucometer. He came in because he was feeling quite ill. Patient's treated aggressively with IV fluid hydration 2 L, IV insulin regular 10 units IV push 2 with improvement of his sugar down to 147. His BUN/creatinine are grossly elevated, consistent with acute renal failure on top of his chronic renal failure. His previous creatinine was 2.5. It is 4.1 today. An MRI is performed of his right foot to rule out osteomyelitis as the source of the infection. There is gross erythema extending up the top of his foot into the lower part of the leg is grossly warm to the touch, suggesting cellulitis of the lower extremity. 05/19/2018 1:44:01 am case discussed with Dr. Mars hospitalist on-call, who advised that patient should be admitted under surgery since he is a patient of Dr. Cramer's. 05/19/2018 1:47:28 am case was discussed with Dr. Lorenzo Hampton, general surgeon on-call, who accepts the patient for admission for Dr. Cramer. He requests medicine consult for management of medical problems. Decision to Disposition Date: May 19, 2018 Decision to Disposition Time: : Critical Care Time I spent a total of 60 of critical care time in obtaining history, performing a physical exam, bedside monitoring of interventions, collecting and interpreting tests and discussion with consultants but not including time spent performing procedures. Depart Departure Latest Vital Signs Vital Signs Date Time Temp Pulse Resp B/P (MAP) Pulse Ox O2 Delivery O2 Flow Rate FiO2 05/19/18 01:55 83 05/19/18 01:45 123/77 (92) 05/19/18 01:30 21 91 05/18/18 21:07 104.1 Nasal Cannula 05/18/18 20:58 2.0 Impression: Primary Impression: Cellulitis of right lower extremity Additional Impressions: Hyperglycemia Dehydration Type II diabetes mellitus Hypertension History of left below knee amputation Condition: Improved Disposition: Admitted from ER Referrals: INA MEEHAN MD (PCP) Problem Qualifiers Additional Impressions: Type II diabetes mellitus Diabetes mellitus senior care insulin use: unspecified senior care insulin use status Diabetes mellitus complication status: with neurologic complications Diabetes mellitus complication detail: with unspecified neuropathy Qualified Codes: E11.40 - Type 2 diabetes mellitus with diabetic neuropathy, unspecified Hypertension Hypertension type: essential hypertension Qualified Codes: I10 - Essential (primary) hypertension CLAUDE MARTINEZ DO May 18, 2018 21:24
[2018-05-18] MEDS ORDERED: INSU HUM REG 100 U/ML(ER ONLY) 10 ML VIAL IVP ONE ×2 (21:25→22:30)
[2018-05-18 21:35] LABS: PLATELET COUNT, AUTOMATED 162 K/uL (150-450)
--- NOTE | 2018-05-19 01:10 | RADIOLOGY IMAGING REPORT ---
FACILITY: [facility] - [place] PATIENT NAME: To Booker : 1945 MR: [id number] V: [id number] EXAM DATE: ORDERING PHYSICIAN: CLAUDE MARTINEZ TECHNOLOGIST: Location: [facility] [place] Patient: To Booker : 1945 Visit/Account:[id number] Date of Sevice: 05/18/2018 CHEST SINGLE AP Indication: Fever. Comparison: 01/24/2017 Findings: The lung volumes are small. Linear atelectasis is present within both lung bases. Slight increased op acity is seen in the right cardiophrenic angle when compared to the prior exam which may reflect vasc ular crowding and atelectasis given the small lung volumes. Early infiltrate cannot be excluded. No e ffusion or pneumothorax. Heart size is within normal limits. There is an old healed right third rib f racture. IMPRESSION: 1. Small lung volumes with bibasilar atelectasis. 2. Question atelectasis and vascular crowding versus early infiltrate within the right cardiophrenic angle. Consider follow-up dedicated two-view study with improved lung volumes. Report Dictated By: Cb Lozoya at 05/19/2018 1:03 AM Report E-Signed By: Cb Lozoya at 05/19/2018 1:06 AM WSN:[id number]
--- NOTE | 2018-05-19 01:28 | RADIOLOGY IMAGING REPORT ---
FACILITY: [facility] PATIENT NAME: To Booker : 1945 MR: [id number] V: [id number] EXAM DATE: ORDERING PHYSICIAN: CLAUDE MARTINEZ TECHNOLOGIST: Location: [facility] - [place] Patient: To Booker : 1945 Visit/Account:[id number] Date of Sevice: 05/18/2018 MRI right foot Indication: Foot ulcers. Evaluate for osteomyelitis. Comparison: None available Technique: 2 plantar, multisequence MRI examination is performed of the right foot without contrast. Markers were placed at the sites of the reported ulcers. Findings: Beginning first with the hindfoot, there is a posterior plantar heel ulcer. There is associated skin thickening in this location and there is edema within the underlying subcutaneous fatty tissues. The subcutaneous edema extends to the level of the plantar fascia origins particularly along the origin o f the lateral band of the plantar fascia. No bone destruction. No marrow edema. There is no MR eviden ce of osteomyelitis. No fluid collection in this location. The plantar fascia origins do appear intac t. The marrow pattern of the distal tibia and fibula is normal. The marrow pattern of the talus is aleksandr l. There is mild tibiotalar joint and posterior subtalar joint osteoarthritis present. There is a sma ll tibiotalar joint effusion. With respect to the midfoot, no ulcers are seen. There is multifocal mid foot osteoarthritis present most pronounced at the calcaneocuboid and talonavicular joints. No evidence of midfoot stress reactio n or fracture. With respect to the forefoot, there has been a fifth toe amputation through the proximal shaft of the fifth metatarsal. There are markers associated with the plantar surface of the third and fourth meta tarsal heads as well as the plantar surfaces of the third and fourth toes. No evidence to suggest ost eomyelitis of the metatarsals. The middle phalanx of the third toe is abnormally shaped. Compared to plain films from 01/05/2018, this is a new finding. Has there been resection of the middle phalanx of the third toe? There is subcutaneous edema involving the third toe. Clinical correlation is necessary . If there has not been surgery, consideration must be given to a fracture deformity. Depending on th e ulcer location, osteomyelitis and bone destruction must be considered. Unfortunately, the distal to es are not optimally evaluated due to coil positioning. Distal phalanges of several toes are not incl uded in the [id number]. There is dorsal subcutaneous edema involving the forefoot. No well-defined fluid collection. There is atrophy of the intrinsic musculature the foot likely reflecting chronic denervation changes. IMPRESSION: 1. Right plantar heel ulcer with suspected cellulitis and with underlying subcutaneous edema. No evid ence of fluid collection or calcaneal osteomyelitis. 2. Abnormal appearance of the middle phalanx of the third toe when compared to prior plain films. Pha langes of the toes are not optimally evaluated due to coil positioning. Consider plain film correlati on. This may represent a third toe middle phalanx fracture or interval surgical debridement. Osteomye litis cannot be excluded. 3. Hindfoot, midfoot and first metatarsophalangeal joint osteoarthritis as reported above. 4. Fatty atrophy of the intrinsic musculature of the foot consistent with chronic denervation change. Report Dictated By: Cb Lozoya at 05/19/2018 1:06 AM Report E-Signed By: Cb Lozoya at 05/19/2018 1:24 AM WSN:[id number]
[2018-05-19] MEDS ORDERED: VANCOMYCIN 1 GM ADDVIAL 1 GM in NS(*) 0.9% 250 ML ADDVAN BAG 250 ML IVPB ONE (01:35)
[2018-05-19 02:28] VITALS: BP 138/75
--- NOTE | 2018-05-19 02:42 | History & Physical ---
History of Present Illness Chief Complaint Worsening redness of right foot and leg. History of Present Illness 72 year old male with history of extensive vascular disease with previous non- healing wounds of the left foot and lower leg requiring BKA. He has hypertension, hyperlipidemia, diabetes T2, CKD. He has developed ulcers of the right foot and has been seeing Dr. Jimenez and phys therapy without much success in healing the areas as yet. He did receive two doses of vancomycin earlier this week. His blood glucose levels have been increasing along with the color changes in the lower right foot and leg. [facility] No pain. Fever. History Problems: (1) Hypertension Status: Chronic (2) History of left below knee amputation Status: Resolved (3) Type II diabetes mellitus Status: Chronic (4) Hyperlipidemia Status: Chronic (5) CKD (chronic kidney disease) stage 4, GFR 15-29 ml/min Status: Chronic (6) Hypothyroid Status: Chronic Home Meds Active Scripts Sulfamethoxazole/Trimet 800-160 Mg Tab (BACTRIM DS TABLET) 1 Each Tablet, 1 TAB PO Q12H, #20 TAB 0 Refills Prov:NATALY EASLEY MD 05/13/18 Cephalexin 500 Mg Tab (KEFLEX 500 MG TAB) 500 Mg Tablet, 500 MG PO TID, #30 TAB Prov:JANEE GANDHI 01/05/18 Amlodipine Besylate (AMLODIPINE BESYLATE) 5 Mg Tablet, 5 MG PO QDAY, #30 TAB Prov:INDRA LANTIGUA DO 01/28/17 Reported Medications Lisinopril (LISINOPRIL) 40 Mg Tablet, 40 MG PO QDAY, TAB 05/13/18 Furosemide (FUROSEMIDE) 20 Mg Tablet, 1 TAB PO QDAY, TAB 05/13/18 Insulin Aspart (NOVOLOG) 100 Unit/Ml Soln, 12 UNIT SUBQ TID 01/05/18 Insulin Detemir (LEVEMIR) 100 Unit/Ml Injs, 30 UNIT SUBQ BID 01/05/18 Aspirin (ASPIRIN) 325 Mg Tablet, 325 MG PO BID PRN for PAIN, TAB 01/24/17 Simvastatin (SIMVASTATIN) 40 Mg Tablet, 40 MG PO HS, TAB 01/24/17 Metoprolol Succinate (METOPROLOL SUCCINATE) 50 Mg Tab.er.24h, 1 TAB PO BID, TAB 01/24/17 Hydrochlorothiazide (HYDROCHLOROTHIAZIDE) 25 Mg Tablet, 1 TAB PO QDAY, TAB 01/24/17 Levothyroxine Sodium (SYNTHROID) 88 Mcg Tablet, 100 MCG PO QDAY Take one tablet by mouth every day. 12/06/13 Gabapentin (GABAPENTIN) 300 Mg Capsule, 300 MG PO BID, CAPSULE Take one capsule by mouth twice each day. 12/06/13 Allergies: Coded Allergies: No Known Drug Allergies (Unverified , 05/19/18) Patient History: FH: stroke FATHER, , Age:96 FHx: diabetes mellitus FATHER, , Age:96 Hx Smoking: No Smoking Status: Never Smoker Exposure to Second Hand Smoke?: No Caffeine Intake: Coffee Caffeine/Cups Per Day: TID Hx Alcohol Use: No Hx Substance Use Disorder: No Review of Systems Constitutional: Fever, Chills Neurological: Weakness; No Syncope, No Confusion, No Dizziness, No Slurred Speech Cardiovascular: No Chest Pain, No Palpitations, No Orthostatic Hypotension Respiratory: No Shortness of Breath, No Cough, No Wheezing Gastrointestinal: No Nausea, No Vomiting, No Diarrhea, No Dysphagia, No Constipation, No Abdominal Pain Genitourinary: No Dysuria, No Hematuria, No Urinary Incontinence Musculoskeletal: Impaired Mobility Psychiatric: Anxiety Exam Vital Signs Vital Signs Date Time Temp Pulse Resp B/P (MAP) Pulse Ox O2 Delivery O2 Flow Rate FiO2 05/19/18 02:28 99.6 84 20 138/75 (96) 91 Nasal Cannula 2.0 General Appearance: Alert, Awake, No Acute Distress, Other (Temp up to 104.1F in ER.) Neck: No Masses Cardiovascular: Other (S1S2 are very soft. No murmur, gallops or rubs.) Respiratory: Clear to Auscultation Chest: No Masses, No Tenderness GI: Abd Soft and Non-Tender, Other (BS are active. No distension, organomegaly.) : No CVA Tenderness Musculoskeletal: Other (BK amputation left lower leg/foot.) Extremities: Other (3-3.5 cm ulcer right heel with small, superficial ulcer over 5th proximal metatarsal. Area is erythematous over dorsum of foot. DP/PT pulses ae graded 2/4 in right foot. Small abrasions over right knee. ) Integumentary: Other (See below.) Psych: Alert & Oriented X3, Appropriate Mood & Affect Medical Decision Making Data Points Result Diagram: 05/18/18210905/18/182109 Item Value Date Time Glomerular Filtration Rate Calc 14.5 05/18/182109 Random Glucose 548 mg/dl *H 05/18/182109 Lactate 2.8 mmol/L H 05/18/182109 Whole Blood Glucose 145 mg/DL H 05/19/188 Calcium Level 8.5 mg/dl 05/18/182109 Aspartate Amino Transf (AST/SGOT) 16 U/L 05/18/182109 Total Bilirubin 0.6 mg/dl 05/18/182109 Alanine Aminotransferase (ALT/SGPT) 24 U/L 05/18/182109 Alkaline Phosphatase 174 U/L H 05/18/182109 C-Reactive Protein 2.7 mg/dl H 05/18/182109 Total Protein 6.6 g/dl 05/18/182109 Albumin 3.6 g/dl 05/18/182109 Urine Clarity Clear 05/19/18110 Urine pH 5.0 pH 05/19/18110 Urine Specific [place] 1.012 05/19/18110 Urine Protein 100 mg/dL 05/19/18110 Urine Glucose (UA) 500 mg/dL 05/19/18110 Urine Ketones Negative mg/dL 05/19/18110 Urine Blood Negative 05/19/18110 Urine Nitrite Negative 05/19/18110 Urine Urobilinogen Negative mg/dL 05/19/18110 Urine Bilirubin Negative 05/19/18110 Urine Leukocyte Esterase Negative 05/19/18110 Urine RBC <1 /HPF 05/19/18110 Urine WBC 2 /HPF 05/19/18110 Urine Squamous Epithelial Cells Few /LPF 05/19/18 011 Urine Bacteria Few /HPF 05/19/18110 Urine Mucus None /HPF 05/19/18 011 EKG / Imaging Monitor Interpretation: Normal Sinus Rhythm Imaging MRI of the right foot- no osteomyelitis seen. Soft tissue swelling. Questionable fx. proximal, right 3rd MT. CXR clear. Pre-Admit Course ED Medications Reviewed. Vancomycin dose given in ER without random vanco level (given the previous 2 doses this week). Medical Record Review: Yes Assessment and Plan Problems: (1) Diabetic foot ulcers Status: Chronic Assessment & Plan: Right heel and foot. These are relatively clean and dry at this point. Will get PT involved when they are available and Dr. Jimenez will come by on Monday when he returns from the weekend. Elevate right lower leg. Check random vanco level later this morning before using any additional vancomycin. Cultures are pending. (2) Cellulitis of right lower extremity Status: Acute Assessment & Plan: As above. He is probably in early stages of sepsis but has received fluids, antibiotics and is already feeling better. Will follow CBC and lactate level. (3) Hyperkalemia Status: Acute Assessment & Plan: Most likely due to CKD, diabetes poorly controlled and meds. This should correct with fluids, diabetic control and will follow carefully. If not improved, will use kayexalate. (4) Hyponatremia Status: Acute Assessment & Plan: Most likely due to meds, CKD and diuretics. Will replace with IV fluids and follow labs. (5) CKD (chronic kidney disease) stage 4, GFR 15-29 ml/min Status: Chronic (6) Acute kidney injury (nontraumatic) Status: Acute Assessment & Plan: Creat is substantially higher than usual and is probably due to dehydration, vancomycin. Will follow labs. (7) Type II diabetes mellitus Status: Chronic Assessment & Plan: Will do ac and hs WBG and cover with SS insulin. (8) Hyperlipidemia Status: Chronic Assessment & Plan: Continue crestor. (9) Hypertension Status: Chronic Assessment & Plan: Continue metoprolol and norvasc but hold lisinopril due to CKD and hyponatremia. (10) Hypothyroid Status: Chronic Assessment & Plan: Continue levothyroxine. Central Venous Access Medical Necessity for Access: Hemodynamic Monitoring, IV Access, Medication Administration Time Spent on Plan of Care: > 30 min Copies to: INDRA JIMENEZ MD ; Venous Thromboembolism VTE Risk Physician Assess for VTE Risk: Yes Patient's VTE Risk: High VTE Diagnostic Test 2 Days Prior to Admit: No Antithrombotics Is Pt On Any Antithrombotics?: Yes Exam Sepsis Risk: No Definite Risk Problem Qualifiers (1) Type II diabetes mellitus: Diabetes mellitus fdc insulin use: unspecified terminal computer operator insulin use status Diabetes mellitus complication status: with neurologic complications Diabetes mellitus complication detail: with unspecified neuropathy Qualified Codes: E11.40 - Type 2 diabetes mellitus with diabetic neuropathy, unspecified (2) Hypertension: Hypertension type: essential hypertension Qualified Codes: I10 - Essential (primary) hypertension ABNER HUDDLESTON MD FACP May 19, 2018 02:42
[2018-05-19] MEDS ORDERED: NOVOLOG SUBQ (02:58)
[2018-05-19] MEDS ORDERED: GABA-549 PO (02:58)
[2018-05-19] MEDS ORDERED: LEVI SUBQ (02:59)
[2018-05-19] MEDS ORDERED: NS(*) 0.9% 1000 ML BAG 1,000 ML ONE (03:20)
[2018-05-19] MEDS ORDERED: NS(*) 0.9% 1000 ML BAG 1,000 ML IV SCH (03:25)
[2018-05-19] MEDS: NS(*) 0.9% 1000 ML BAG 1,000 ML IV PRN ×2 (03:50→18:14)
[2018-05-19] MEDS: LEVOTHYROXINE SOD 0.088 MG TAB PO SCH (06:31)
[2018-05-19 06:55] LABS: PLATELET COUNT, AUTOMATED 142 K/uL (150-450)
[2018-05-19 07:52] VITALS: BP 128/71
[2018-05-19] MEDS: ASPIRIN 81 MG ENTERIC COATED PO SCH (09:30)
[2018-05-19] MEDS: METOPROLOL SUCC XL 50 MG TABCR 50 MG TAB.ER.24H PO SCH (09:30)
[2018-05-19] MEDS: amLODIPine BESYL(*) 5 MG TAB PO SCH (09:30)
[2018-05-19] MEDS: CILASTA IVPB SCH ×3 (09:38→21:24)
[2018-05-19] MEDS: IMIPENEM IVPB SCH ×3 (09:38→21:24)
[2018-05-19] MEDS: NS 0.9% IVPB SCH ×3 (09:38→21:24)
[2018-05-19 11:35] VITALS: BP 155/76
[2018-05-19] MEDS: ACETAMINOPHEN 325 MG TAB PO PRN ×2 (11:37→19:58)
--- NOTE | 2018-05-19 11:39 | Hospitalist Progress Note ---
Subjective Progress Notes Subjective This patient was admitted for a cellulitis of the foot. He had no acute events overnight. Patient Complains of: Cardiovascular: No: Chest Pain Respiratory: No: Shortness of Breath Physical Exam Vital Signs Date Time Temp Pulse Resp B/P (MAP) Pulse Ox O2 Delivery O2 Flow Rate FiO2 05/19/18 07:52 99.8 20 128/71 (90) 91 Nasal Cannula 2.0 05/19/18 02:28 84 Cardiovascular: Regular Rate and Rhythm Respiratory: Clear to Auscultation Integumentary: Other (Area of redness on right foot and ankle.) Result Diagram: 05/19/18 0642 05/19/18 0642 Imaging MRI foot reviewed. Monitor Interpretation: Normal Sinus Rhythm Assessment and Plan Problems: (1) Diabetic foot ulcers Status: Chronic Assessment & Plan: Right heel and foot. These are relatively clean and dry at this point. An MRI was negative for osteomyelitis. (2) Cellulitis of right lower extremity Status: Acute Assessment & Plan: There is an area of redness on the right ankle and foot. T his has been outlined at admission and appears unchanged. He is on empiric treatment with Primaxin. (3) Hyperkalemia Status: Acute Assessment & Plan: Resolved. (4) Hyponatremia Status: Acute Assessment & Plan: Improving with IV fluids. (5) CKD (chronic kidney disease) stage 4, GFR 15-29 ml/min Status: Chronic (6) Acute kidney injury (nontraumatic) Status: Acute Assessment & Plan: His creatinine was elevated above his baseline. It is improving with IV fluids. (7) Type II diabetes mellitus Status: Chronic Assessment & Plan: He is on chronic treatment with Levemir and NovoLog. We currently are controlling him with sliding scale level #2. (8) Hyperlipidemia Status: Chronic Assessment & Plan: He is on chronic treatment with Crestor. (9) Hypertension Status: Chronic Assessment & Plan: He is on chronic treatment with metoprolol, amlodipine, and lisinopril. The lisinopril has been on hold secondary to poor renal function. (10) Hypothyroid Status: Chronic Assessment & Plan: He is on chronic treatment with levothyroxine. Central Venous Access Medical Necessity for Access: Hemodynamic Monitoring, IV Access, Medication Administration Exam Sepsis Risk: No Definite Risk Problem Qualifiers (1) Type II diabetes mellitus: Diabetes mellitus computer terminal operator insulin use: unspecified computer terminal operator insulin use status Diabetes mellitus complication status: with neurologic complications Diabetes mellitus complication detail: with unspecified neuropathy Qualified Codes: E11.40 - Type 2 diabetes mellitus with diabetic neuropathy, unspecified (2) Hypertension: Hypertension type: essential hypertension Qualified Codes: I10 - Essential (primary) hypertension INDRA LANTIGUA DO May 19, 2018 11:39
[2018-05-19] MEDS: INSULIN HUM REG 100 UN/ML 3 ML VIAL SC PRN ×3 (12:07→20:54)
[2018-05-19 15:44] VITALS: BP 131/68
[2018-05-19 15:55] VITALS: Ht 185.4 cm; Wt 102.7 kg
[2018-05-19 19:48] VITALS: BP 132/67
[2018-05-19] MEDS: GABAPENTIN 300 MG CAP PO SCH (20:53)
[2018-05-19] MEDS: SIMVASTATIN 40 MG TAB PO SCH (20:53)
[2018-05-20 02:34] VITALS: BP 104/49
[2018-05-20] MEDS: ACETAMINOPHEN 325 MG TAB PO PRN ×3 (02:39→20:10)
[2018-05-20] MEDS: IMIPENEM IVPB SCH ×4 (03:43→21:32)
[2018-05-20] MEDS: NS 0.9% IVPB SCH ×4 (03:43→21:32)
[2018-05-20] MEDS: CILASTA IVPB SCH ×4 (03:43→21:32)
[2018-05-20] MEDS: LEVOTHYROXINE SOD 0.088 MG TAB PO SCH (05:34)
[2018-05-20 06:47] VITALS: BP 118/57
[2018-05-20 07:26] LABS: PLATELET COUNT, AUTOMATED 121 K/uL (150-450)
[2018-05-20] MEDS: INSULIN HUM REG 100 UN/ML 3 ML VIAL SC PRN ×3 (07:50→21:31)
[2018-05-20] MEDS ORDERED: VANCOMYCIN(*) 1 GM VIAL 1 GM, VANCOMYCIN (*) 0.5 GM VIAL 0.25 GM in NS(*) 0.9% 250 ML B... IVPB ONE (09:00)
[2018-05-20] MEDS ORDERED: INSULIN DETEMIR 100 UN/ML VIAL SUBQ SCH (09:20)
[2018-05-20] MEDS: METOPROLOL SUCC XL 50 MG TABCR 50 MG TAB.ER.24H PO SCH (09:30)
[2018-05-20] MEDS: ASPIRIN 81 MG ENTERIC COATED PO SCH (09:30)
[2018-05-20] MEDS: amLODIPine BESYL(*) 5 MG TAB PO SCH (09:30)
[2018-05-20] MEDS: NS(*) 0.9% 1000 ML BAG 1,000 ML IV PRN (09:34)
--- NOTE | 2018-05-20 09:39 | Hospitalist Progress Note ---
Subjective Progress Notes Subjective The patient continues to feel weak and his appetite is poor. He is drinking fluids well. Physical Exam Vital Signs Date Time Temp Pulse Resp B/P (MAP) Pulse Ox O2 Delivery O2 Flow Rate FiO2 05/20/18 07:47 91 Nasal Cannula 1.5 05/20/18 06:47 99.8 70 24 118/57 (77) Intake and Output 05/20/18 06:59 Intake Total 1440 ml Balance 1440 ml Intake Oral 240 ml IV Total 1200 ml # Voids 3 # Bowel Movements 1 General Appearance: Alert, Awake, No Acute Distress Neuro: No Gross deficits Eyes: PERRLA Cardiovascular: Regular Rate and Rhythm Respiratory: Clear to Auscultation GI: Soft and Non-Tender Extremities: Warm, Perfused, Other (L lower leg is surgically absent. R LE with wound on heel, bandaged, with evidence of some drainage. Anterior ankle with redness. No increased warmth today. The redness remains inside the previous lines drawn to outline the wound.) Result Diagram: 05/20/1871805/20/18718 Monitor Interpretation: Normal Sinus Rhythm Assessment and Plan Problems: (1) Diabetic foot ulcers Status: Chronic Assessment & Plan: Right heel and foot. These are relatively clean and dry at this point. An MRI was negative for osteomyelitis. (2) Cellulitis of right lower extremity Status: Acute Assessment & Plan: There is an area of redness on the right ankle and foot. This has been outlined at admission and appears unchanged. He was on empiric treatment with Primaxin but continued to have fever. Vanco was added based on his weight and CrCl. A one time dose was given and a random Vanco level has been ordered for early am. (3) Hyperkalemia Status: Acute Assessment & Plan: Resolved. (4) Hyponatremia Status: Acute Assessment & Plan: Improving with IV fluids. (5) CKD (chronic kidney disease) stage 4, GFR 15-29 ml/min Status: Chronic (6) Acute kidney injury (nontraumatic) Status: Acute Assessment & Plan: His creatinine was elevated above his baseline. It is improving with IV fluids. (7) Type II diabetes mellitus Status: Chronic Assessment & Plan: He is on chronic treatment with Levemir and NovoLog. His blood sugars remain elevated. Will add half of his usual dose of Levemir. Will continue sliding scale level as well. (8) Hyperlipidemia Status: Chronic Assessment & Plan: He is on chronic treatment with Crestor. (9) Hypertension Status: Chronic Assessment & Plan: He is on chronic treatment with metoprolol, amlodipine, and lisinopril. The lisinopril has been on hold secondary to poor renal function. (10) Hypothyroid Status: Chronic Assessment & Plan: He is on chronic treatment with levothyroxine. Central Venous Access Medical Necessity for Access: Hemodynamic Monitoring, IV Access, Medication Administration Time Spent on Plan of Care: < 30 min Exam Sepsis Risk: No Definite Risk Problem Qualifiers (1) Type II diabetes mellitus: Diabetes mellitus bed bug exterminator insulin use: unspecified bed bug exterminator insulin use sta tus Diabetes mellitus complication status: with neurologic complications Diabetes mellitus complication detail: with unspecified neuropathy Qualified Codes: E11.40 - Type 2 diabetes mellitus with diabetic neuropathy, unspecified (2) Hypertension: Hypertension type: essential hypertension Qualified Codes: I10 - Essential (primary) hypertension HEIDI SCHMITT MD May 20, 2018 09:39
[2018-05-20] MEDS ORDERED: AMLO-104 PO (11:14)
[2018-05-20 11:28] VITALS: BP 134/66
[2018-05-20] MEDS ORDERED: INSU100I35 SQ (12:07)
[2018-05-20] MEDS ORDERED: INSU100I5 SQ (12:08)
[2018-05-20] MEDS ORDERED: LEVO75TA73 PO (12:10)
[2018-05-20] MEDS ORDERED: ASPI81TA94 PO (12:15)
--- NOTE | 2018-05-20 14:18 | Medical Nutrition Therapy ---
Nutrition Anthropometrics Height (Inches): 73.00 Height (Calculated Centimeters: 185.960019 Weight (Pounds): 226 Weight (Calculated Kilograms): 102.654 BMI: 29.9 Ascencion Nutrition Score: Adequate Ascencion Nutrition Risk Score: 16 Dietary Referral Nutrition Risk Factors: Stg 2-4 Press Ulcer, Non-Healing Wound Nutrition Risk Comment: diabetic Physical Findings Physical Appearance: Overweight BMI 25-29 Skin Appearance Skin Appearance: Edema Edema Location Modifier: Edema Location: Type of Edema: Degree of Edema: Gastrointestinal Symptoms GI Symtoms: Nausea Tube Present: Bowel Sounds: Recent Bowel Pattern: Stool Characteristics: Nutrition/Food History No Significant Nutr. HX Nutritional Diagnosis Nutritional Risk Acuity 1: Acute/ES Renal Nutritional Risk Acuity 2: Abcess/Non-Healing Wound Nutritional Risk Acuity 3: Fair Appetite Past Medical History: T2DM, CKD-4, Hyperlipidemia, Hypertension, Hypothyroid, Left BKA, Diabetic foot ulcers Nutritional Acuity: 1-High Nutrition Diagnosis: Increased Nutrient Needs Nutrition Etiology: Physiological Causes Nutrition Problem/Etiology/Sym: Increased Nutrient Needs related to increased demand for nutrients secondary to wound healing and infection AEB low albumin status indicating increased stress and increased metabolic needs. Energy Requirement: 2570 ([place] Jeor: Actual BW X 1.4) Protein Requirement: 82 (Actual BW Kg X .8) Fluid Requirement: 2570 Diet Type: Diabetic Nutrition Intervention: Cont diet as ordered, Check glucose Nutrition Monitoring & Eval Nutrition Goals: Eat 75-100% Meal RD Patient Assessment Time: [address] Assessment Type: RD Screen Patient Nutrition Acuity: 2-Moderate Follow Up Date: May 23, 2018 Nutritional Comment: 05/20/18 Pt admitted for Diabetic foot ulcers and Cellulitis of right lower extremity. HX of left BKA. Pt is overwt with BMI of 29.9. Glu 337, Low H/H, Alb 2.9, High BUN/Creat. Humilin R SSI, Levemir 17u BID. Pt receiving Diabetes diet with fair appetite and consuming 25-75% of meals. Encourage intake, follow labs, etc. -KATHERINE MAGALLON May 20, 2018 14:18
[2018-05-20 15:23] VITALS: BP 130/67
[2018-05-20 20:03] VITALS: BP 142/66
[2018-05-20] MEDS: GABAPENTIN 300 MG CAP PO SCH (21:29)
[2018-05-20] MEDS: SIMVASTATIN 40 MG TAB PO SCH (21:29)
[2018-05-20] MEDS: INSULIN DETEMIR 100 U/ML 3 ML PEN SUBQ SCH (21:30)
[2018-05-20 23:33] VITALS: BP 113/66
[2018-05-21] MEDS: NS(*) 0.9% 1000 ML BAG 1,000 ML IV PRN ×2 (02:12→18:01)
[2018-05-21 03:57] VITALS: BP 128/61
[2018-05-21] MEDS: IMIPENEM IVPB SCH ×4 (03:57→21:48)
[2018-05-21] MEDS: NS 0.9% IVPB SCH ×4 (03:57→21:48)
[2018-05-21] MEDS: CILASTA IVPB SCH ×4 (03:57→21:48)
[2018-05-21 05:37] LABS: PLATELET COUNT, AUTOMATED 132 K/uL (150-450)
[2018-05-21] MEDS: LEVOTHYROXINE SOD 0.088 MG TAB PO SCH (06:09)
[2018-05-21 07:28] VITALS: BP 150/76
[2018-05-21] MEDS: INSULIN HUM REG 100 UN/ML 3 ML VIAL SC PRN ×4 (07:40→21:42)
[2018-05-21] MEDS: amLODIPine BESYL(*) 5 MG TAB PO SCH (08:54)
[2018-05-21] MEDS: ASPIRIN 81 MG ENTERIC COATED PO SCH (08:54)
[2018-05-21] MEDS: METOPROLOL SUCC XL 50 MG TABCR 50 MG TAB.ER.24H PO SCH (08:54)
[2018-05-21] MEDS: INSULIN DETEMIR 100 U/ML 3 ML PEN SUBQ SCH ×2 (08:55→21:42)
--- NOTE | 2018-05-21 09:21 | General Surgery Consultation ---
History of Present Illness Chief Complaint Cellulitis, right foot History of Present Illness 72-year-old gentleman who I recently saw in clinic for a right heel ulcer is admitted to the hospitalist service with poorly controlled diabetes and severe hyperglycemia and erythema and edema to his right foot. When I saw him last week for his right heel ulcer, it was approximately 7 mm in diameter and I debrided some necrotic tissue from the ulcer base. There was no erythema or drainage at that time. We continued his oral Bactrim which should been previously started by the emergency room. We continued wound care however he was brought in on Monday with concerns from his that he was very weak and did not have the strength to move himself around. He was found to have a blood sugar over 500 and his right foot was found to be erythematous and edematous so he was admitted and started on antibiotics and efforts were started to improve his blood sugar control. History Problems: (1) Hyperlipidemia Status: Chronic (2) Hypothyroid Status: Chronic (3) Diabetic foot ulcers Status: Chronic (4) CKD (chronic kidney disease) stage 4, GFR 15-29 ml/min Status: Chronic (5) Type II diabetes mellitus Status: Chronic (6) Hypertension Status: Chronic (7) S/P BKA (below knee amputation) Status: Chronic Home Meds Active Scripts Sulfamethoxazole/Trimet 800-160 Mg Tab (BACTRIM DS TABLET) 1 Each Tablet, 1 TAB PO Q12H, #20 TAB 0 Refills Prov:NATALY EASLEY MD 05/13/18 Reported Medications Aspirin (ASPIRIN) 81 Mg Tab.chew, 81 MG PO QDAY, TAB.CHEW 05/20/18 Levothyroxine Sodium (LEVOTHYROXINE SODIUM) 75 Mcg Tablet, 75 MCG PO QDAY, TAB 05/20/18 Insulin Detemir 100 UN/ML PEN (Levemir Flextouch) 100 Unit/1 Ml Insuln.pen, 34 SQ BID 05/20/18 Insulin Aspart 100 Un/Ml Pen (NOVOLOG FLEXPEN) 100 Unit/1 Ml Insuln.pen, 12 UNIT SQ TIDAC, ML 05/20/18 Amlodipine Besylate (NORVASC) 10 Mg Tablet, 0.5 TAB PO QDAY, TAB 05/20/18 Gabapentin (GABAPENTIN) 300 Mg Capsule, 300 MG PO DAILY, CAPSULE 05/19/18 Lisinopril (LISINOPRIL) 40 Mg Tablet, 40 MG PO QDAY, TAB 05/13/18 Furosemide (FUROSEMIDE) 20 Mg Tablet, 1 TAB PO QDAY, TAB 05/13/18 Simvastatin (SIMVASTATIN) 40 Mg Tablet, 40 MG PO HS, TAB 01/24/17 Metoprolol Succinate (METOPROLOL SUCCINATE) 50 Mg Tab.er.24h, 1 TAB PO BID, TAB 01/24/17 Hydrochlorothiazide (HYDROCHLOROTHIAZIDE) 25 Mg Tablet, 1 TAB PO QDAY, TAB 01/24/17 Discontinued Reported Medications Insulin Detemir (LEVEMIR) 100 Unit/Ml Injs, 33 UNIT SUBQ BID 05/19/18 Insulin Aspart (NOVOLOG) 100 Unit/Ml Soln, 14 UNIT SUBQ TID 05/19/18 Aspirin (ASPIRIN) 325 Mg Tablet, 325 MG PO BID PRN for PAIN, TAB 01/24/17 Levothyroxine Sodium (SYNTHROID) 88 Mcg Tablet, 100 MCG PO QDAY Take one tablet by mouth every day. 12/06/13 Insulin Aspart (NOVOLOG) 100 Unit/Ml Soln, 12 UNIT SUBQ TID 01/05/18 Insulin Detemir (LEVEMIR) 100 Unit/Ml Injs, 30 UNIT SUBQ BID 01/05/18 Gabapentin (GABAPENTIN) 300 Mg Capsule, 300 MG PO BID, CAPSULE Take one capsule by mouth twice each day. 12/06/13 Discontinued Scripts Cephalexin 500 Mg Tab (KEFLEX 500 MG TAB) 500 Mg Tablet, 500 MG PO TID, #30 TAB Prov:JANEE GANDHI 01/05/18 Amlodipine Besylate (AMLODIPINE BESYLATE) 5 Mg Tablet, 5 MG PO QDAY, #30 TAB Prov:INDRA LANTIGUA DO 01/28/17 Allergies: Coded Allergies: No Known Drug Allergies (Unverified , 05/19/18) Family History: FH: stroke FATHER, , Age:96 FHx: diabetes mellitus FATHER, , Age:96 Review of Systems All Systems Reviewed/Normal: Yes, Except as Noted Constitutional: Fever Neurological: Weakness Exam Vital Signs Vital Signs Date Time Temp Pulse Resp B/P (MAP) Pulse Ox O2 Delivery O2 Flow Rate FiO2 05/21/18 07:42 98.8 05/21/18 07:28 76 20 150/76 (100) 94 Nasal Cannula 5.0 General Appearance: Alert, Awake, No Acute Distress, Afebrile, Other (he is eating breakfast and not to interactive during this morning's visit. His provides most of the information.) Extremities: Warm, Perfused, Other (the erythema on the dorsum of his right foot is resolving and there are petechiae in its place. The ulcer on his right heel is essentially unchanged from when I saw it 5 days ago in the office.) Medical Decision Making Data Points Result Diagram: 05/21/1851605/21/18516 Assessment and Plan Problems: (1) Diabetic foot ulcer Status: Acute Assessment & Plan: 05/21/18: We will continue wound care which is currently being provided by the wound care team. Continue IV antibiotics until the georgette lulitis and fevers resolved. We will start physical therapy and occupational therapy but avoid any sort of pressure on the heel so most of his pressure will need to be on his forefoot and we will have to monitor that skin for problems. No evidence of osteomyelitis on physical exam or on MRI. I will continue to follow with you. (2) Type II diabetes mellitus Status: Chronic (3) History of left below knee amputation Status: Resolved Central Venous Access Medical Necessity for Access: Hemodynamic Monitoring, IV Access, Medication Administration Condition Stable Time Spent: < 30 min Venous Thromboembolism Antithrombotics Is Pt On Any Antithrombotics?: Yes Problem Qualifiers (1) Diabetic foot ulcer: Diabetic foot ulcer location: heel Diabetes mellitus type: type 2 Laterality: right Non-pressure ulcer stage: with fat layer exposed Qualified Codes: E11.621 - Type 2 diabetes mellitus with foot ulcer; L97.412 - Non- pressure chronic ulcer of right heel and midfoot with fat layer exposed (2) Type II diabetes mellitus: Diabetes mellitus superintendent terminal insulin use: unspecified half-way insulin use status Diabetes mellitus complication status: with neurologic complications Diabetes mellitus complication detail: with unspecified neuropathy Qualified Codes: E11.40 - Type 2 diabetes mellitus with diabetic neuropathy, unspecified INDRA JIMENEZ MD May 21, 2018 09:21
[2018-05-21 10:55] VITALS: BP 146/78
[2018-05-21] MEDS ORDERED: VANCOMYCIN(*) 1 GM VIAL 1 GM, VANCOMYCIN (*) 0.5 GM VIAL 0.5 GM in NS(*) 0.9% 250 ML BA... IVPB ONE (11:00)
--- NOTE | 2018-05-21 11:12 | Hospitalist Progress Note ---
Subjective Progress Notes Subjective He is without complaints. No foot pain. He reports that his eyes are watering and his has noted that his eyes are red. He denies any itchiness or sensation that there is something in his eyes. Physical Exam Vital Signs Date Time Temp Pulse Resp B/P (MAP) Pulse Ox O2 Delivery O2 Flow Rate FiO2 05/21/18 10:55 99.3 74 18 146/78 (100) 95 Nasal Cannula 5.0 Intake and Output 05/21/18 07:00 Intake Total 3267 ml Balance 3267 ml Intake Oral 618 ml IV Total 2649 ml # Voids 2 # Bowel Movements 2 General Appearance: Alert, Awake Eyes: Other (lids with mild erythema. No injected sclera. lids with matting bilaterally) Integumentary: Other (Erythema on foot nearly resolved. Ulcer is boggy at the base and no surrounding erythema.) Result Diagram: 05/21/1851605/21/18516 Monitor Interpretation: Normal Sinus Rhythm Assessment and Plan Problems: (1) Diabetic foot ulcers Status: Chronic Assessment & Plan: Right heel and foot. These are relatively clean and dry at this point. An MRI was negative for osteomyelitis. Continue wound care. (2) Cellulitis of right lower extremity Status: Acute Assessment & Plan: There is an area of redness on the right ankle and foot. T his was outlined at admission and appears improved. He was on empiric treatment with Primaxin but continued to have fever. Vanco was added based on his weight and CrCl, which appears to have helped. Will give another dose and follow random level roughly in 24 hours. (3) Hyperkalemia Status: Acute Assessment & Plan: Resolved. (4) Hyponatremia Status: Acute Assessment & Plan: Improving with IV fluids. (5) CKD (chronic kidney disease) stage 4, GFR 15-29 ml/min Status: Chronic (6) Acute kidney injury (nontraumatic) Status: Acute Assessment & Plan: His creatinine was elevated above his baseline. It is improving with IV fluids. (7) Type II diabetes mellitus Status: Chronic Assessment & Plan: He is on chronic treatment with Levemir and NovoLog. His blood sugars remain elevated. Will add half of his usual dose of Levemir. Will continue sliding scale level as well. (8) Hyperlipidemia Status: Chronic Assessment & Plan: He is on chronic treatment with Crestor. (9) Hypertension Status: Chronic Assessment & Plan: He is on chronic treatment with metoprolol, amlodipine, and lisinopril. The lisinopril has been on hold secondary to poor renal function. (10) Hypothyroid Status: Chronic Assessment & Plan: He is on chronic treatment with levothyroxine. Central Venous Access Medical Necessity for Access: Hemodynamic Monitoring, IV Access, Medication Administration Exam Sepsis Risk: No Definite Risk Problem Qualifiers (1) Type II diabetes mellitus: Diabetes mellitus fci insulin use: unspecified fci insulin use status Diabetes mellitus complication status: with neurologic complications Diabetes mellitus complication detail: with unspecified neuropathy Qualified Codes: E11.40 - Type 2 diabetes mellitus with diabetic neuropathy, unspecified (2) Hypertension: Hypertension type: essential hypertension Qualified Codes: I10 - Essential (primary) hypertension KANCHAN PEREZ MD May 21, 2018 11:12
--- NOTE | 2018-05-21 11:36 | Antimicrobial Stewardship ---
Antimicrobial Stewardship Empiricly appropriate: Yes Significant PMH: Yes (PVD, DM, CKD, L BKA) Duplicate/overlapping Rx: No Support empiric regimen: Yes Comment Empiric tx of Diabetic Foot Infection Approriate Cultures done: Yes (Blood Cx, no wound cx done) Cultures need repeate: No Gram stain show Microbs: No Renal/Hepatic dosing: Yes (CKD-->) Comment Primaxin adjusted for Cr Cl ~27ml/min Serum concentration checked: Yes (Vancomycin Random Levels monitored: 05/21 = 13.9) Comment Random level pending for 0900 on 05/22/18 Reviewed for Drug Interaction: Yes Monitored for Toxicities: Yes Clinically stable/improving: Yes IV to PO Opportunity: No (still febrile, low grade) Comment Consider transition to oral antibiotics tomorrow on 05/22 Determine cumulative duration: Cellulitis 10-14 days of antibiotics Determine standard duration: 10-14d Verified plan for regimen: Yes (continue present management with Vancomycin + Primaxin) ROGERIO KELLY May 21, 2018 11:27
[2018-05-21] MEDS: NAPHAZOLINE OU SCH ×3 (13:31→21:41)
[2018-05-21] MEDS: PHENIRAMINE OU SCH ×3 (13:31→21:41)
[2018-05-21 16:39] VITALS: BP 161/76
[2018-05-21] MEDS: ACETAMINOPHEN 325 MG TAB PO PRN (16:50)
[2018-05-21] MEDS: GABAPENTIN 300 MG CAP PO SCH (21:40)
[2018-05-21] MEDS: SIMVASTATIN 40 MG TAB PO SCH (21:40)
[2018-05-21 23:01] VITALS: BP 134/66
[2018-05-22] MEDS: CILASTA IVPB SCH ×4 (04:10→21:38)
[2018-05-22] MEDS: NS 0.9% IVPB SCH ×4 (04:10→21:38)
[2018-05-22] MEDS: IMIPENEM IVPB SCH ×4 (04:10→21:38)
[2018-05-22 04:11] VITALS: BP 133/67
[2018-05-22] MEDS: LEVOTHYROXINE SOD 0.088 MG TAB PO SCH (05:28)
[2018-05-22 07:20] VITALS: BP 156/82
[2018-05-22] MEDS: PHENIRAMINE OU SCH ×4 (08:24→20:16)
[2018-05-22] MEDS: amLODIPine BESYL(*) 5 MG TAB PO SCH (08:24)
[2018-05-22] MEDS: METOPROLOL SUCC XL 50 MG TABCR 50 MG TAB.ER.24H PO SCH (08:24)
[2018-05-22] MEDS: ASPIRIN 81 MG ENTERIC COATED PO SCH (08:24)
[2018-05-22] MEDS: NAPHAZOLINE OU SCH ×4 (08:24→20:16)
[2018-05-22] MEDS: INSULIN DETEMIR 100 U/ML 3 ML PEN SUBQ SCH ×2 (08:49→20:16)
[2018-05-22 09:37] LABS: PLATELET COUNT, AUTOMATED 176 K/uL (150-450)
[2018-05-22] MEDS ORDERED: VANCOMYCIN(*) 1 GM VIAL 1 GM, VANCOMYCIN (*) 0.5 GM VIAL 0.5 GM in NS(*) 0.9% 250 ML BA... IVPB SCH (11:00)
[2018-05-22 11:01] VITALS: BP 155/91
[2018-05-22] MEDS: INSULIN HUM REG 100 UN/ML 3 ML VIAL SC PRN ×3 (11:39→20:21)
--- NOTE | 2018-05-22 12:34 | RADIOLOGY IMAGING REPORT ---
[place] [facility] [place] NAME: To Booker : 1945 MR: [id number] V: [id number] EXAM DATE: ORDERING PHYSICIAN: QUETA SCHMITT TECHNOLOGIST: Location: [facility] [place] Patient: To Booker : 1945 Visit/Account:[id number] Date of Sevice: 05/22/2018 TOE RIGHT FOOT THIRD DIGIT Indication: Rule out osteomyelitis Comparison: MRI 05/18/2018 Findings: No evidence of fracture, dislocation, or acute osseous abnormality. No periosteal reaction or erosio ns are identified. There is no focal soft tissue abnormality. No evidence of radiopaque foreign body. Flexion contractures of the DIPs of the third and fourth toes are noted. 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 Extensive vascular calcic effusions are noted. IMPRESSION: No radiographic evidence of osteomyelitis Report Dictated By: Rene Salvador at 05/22/2018 12:22 PM Report E-Signed By: Rene Salvador at 05/22/2018 12:29 PM WSN:[id number]
--- NOTE | 2018-05-22 12:58 | Hospitalist Progress Note ---
Subjective Progress Notes Subjective He reports doing well, but nursing and report significant daytime somnolence. Physical Exam Vital Signs Date Time Temp Pulse Resp B/P (MAP) Pulse Ox O2 Delivery O2 Flow Rate FiO2 05/22/18 11:01 99.2 81 18 155/91 (112) 95 Nasal Cannula 2.0 Intake and Output 05/22/18 07:00 Intake Total 1685 ml Balance 1685 ml Intake Oral 1010 ml IV Total 675 ml # Voids 4 # Bowel Movements 1 General Appearance: Other (asleep in chair when I walked into room, but awoke very easily) Cardiovascular: Regular Rate and Rhythm Respiratory: Clear to Auscultation GI: Soft and Non-Tender Extremities: Other (Previous left BKA and right with previous 5th metatarsal/toe amputation. Patch of erythema over dorsum of right foot appears to be fading. Small ulceration at site of previous 5th toe/metatarsal amputation. Ulcer over right heel appears clean with no erythema.) Result Diagram: 05/22/1892405/22/18924 Assessment and Plan Problems: (1) Diabetic foot ulcers Status: Chronic Assessment & Plan: Right heel and foot. These are relatively clean and dry at this point. An MRI was negative for osteomyelitis, but did not see toes very well. Will get plain films to evaluate. Continue antibiotics and wound care. (2) Cellulitis of right lower extremity Status: Acute Assessment & Plan: There is an area of redness on the dorsum of right ankle and foot. This was outlined at admission and appears improved. He is on empiric treatment with Primaxin and Vancomycin - His current dose will be 1.5gm IV q24hrs. Watch labs and levels. (3) Hyperkalemia Status: Acute Assessment & Plan: Resolved. (4) Hyponatremia Status: Acute Assessment & Plan: Resolved with IV fluids. (5) CKD (chronic kidney disease) stage 4, GFR 15-29 ml/min Status: Chronic Assessment & Plan: His creatinine appears slightly improved over his baseline (2.2 this AM). (6) Acute kidney injury (nontraumatic) Status: Acute Assessment & Plan: His creatinine was elevated above his baseline. It is improved with IV fluids. (7) Type II diabetes mellitus Status: Chronic Assessment & Plan: He is on chronic treatment with Levemir and NovoLog. His blood sugars have improved on only one-half of his usual Levemir dose (currently 17 units BID). Will continue sliding scale level as well. (8) Hyperlipidemia Status: Chronic Assessment & Plan: He is on chronic treatment with Crestor. (9) Hypertension Status: Chronic Assessment & Plan: He is on chronic treatment with metoprolol, amlodipine, and lisinopril. The lisinopril has been on hold secondary to poor renal function. (10) Hypothyroid Status: Chronic Assessment & Plan: He is on chronic treatment with levothyroxine. Will check TSH. (11) Daytime somnolence Status: Chronic Assessment & Plan: According to his this has been chronic. He has also had oxygen requirement, especially with sleeping/napping. He very well may have sleep apnea and should have sleep study as an outpatient. Central Venous Access Medical Necessity for Access: Hemodynamic Monitoring, IV Access, Medication Administration Exam Sepsis Risk: No Definite Risk Problem Qualifiers (1) Type II diabetes mellitus: Diabetes mellitus salvage determiner insulin use: unspecified senior care insulin use status Diabetes mellitus complication status: with neurologic complications Diabetes mellitus complication detail: with unspecified neuropathy Qualified Codes: E11.40 - Type 2 diabetes mellitus with diabetic neuropathy, unspecified (2) Hypertension: Hypertension type: essential hypertension Qualified Codes: I10 - Essential (primary) hypertension QUETA SCHMITT MD May 22, 2018 12:58
[2018-05-22 15:02] VITALS: BP 144/80
[2018-05-22] MEDS: NS(*) 0.9% 1000 ML BAG 1,000 ML IV PRN (15:59)
[2018-05-22 18:40] VITALS: BP 167/87
[2018-05-22] MEDS ORDERED: LORATADINE 10 MG TAB PO ONE (19:00)
[2018-05-22] MEDS ORDERED: diphenhydrAMINE 25 MG CAP PO ONE (19:00)
[2018-05-22] MEDS: GABAPENTIN 300 MG CAP PO SCH (20:15)
[2018-05-22] MEDS: SIMVASTATIN 40 MG TAB PO SCH (20:15)
[2018-05-23 03:25] VITALS: BP 155/78
[2018-05-23] MEDS: NS 0.9% IVPB SCH ×2 (03:27→09:42)
[2018-05-23] MEDS: CILASTA IVPB SCH ×2 (03:27→09:42)
[2018-05-23] MEDS: IMIPENEM IVPB SCH ×2 (03:27→09:42)
[2018-05-23] MEDS: LEVOTHYROXINE SOD 0.088 MG TAB PO SCH (05:16)
[2018-05-23 07:03] LABS: PLATELET COUNT, AUTOMATED 161 K/uL (150-450)
[2018-05-23] MEDS: amLODIPine BESYL(*) 5 MG TAB PO SCH (08:25)
[2018-05-23] MEDS: ASPIRIN 81 MG ENTERIC COATED PO SCH (08:25)
[2018-05-23] MEDS: METOPROLOL SUCC XL 50 MG TABCR 50 MG TAB.ER.24H PO SCH (08:25)
[2018-05-23] MEDS: INSULIN DETEMIR 100 U/ML 3 ML PEN SUBQ SCH (08:25)
[2018-05-23] MEDS: NS(*) 0.9% 1000 ML BAG 1,000 ML IV PRN (08:30)
[2018-05-23 08:33] VITALS: BP 164/86
[2018-05-23] MEDS: PHENIRAMINE OU SCH ×2 (09:41→13:45)
[2018-05-23] MEDS: NAPHAZOLINE OU SCH ×2 (09:41→13:45)
[2018-05-23] MEDS ORDERED: CEPHALEXIN MONO 500 MG CAP PO SCH (12:00)
[2018-05-23] MEDS: INSULIN HUM REG 100 UN/ML 3 ML VIAL SC PRN (12:09)
[2018-05-23] MEDS ORDERED: CEPH500T7 PO (13:40)
--- NOTE | 2018-05-23 13:45 | Hospitalist Depart ---
Discharge Summary Reason for Hosp/Final Diag: (1) Diabetic foot ulcers Status: Chronic Hospital Course & Plan: Right heel and foot. These are relatively clean and dry at this point. An MRI was negative for osteomyelitis, but did not see toes very well. XR of toes no overt signs osteomyelitis. Recommend outpatient wound care. (2) Cellulitis of right lower extremity Status: Acute Hospital Course & Plan: There is an area of redness on the dorsum of right ankle and foot. This was outlined at admission and appears improved. He was on empiric treatment with Primaxin and Vancomycin - De-escalated to Keflex based on foot Cx. (3) Hyperkalemia Status: Acute Hospital Course & Plan: Resolved. (4) Hyponatremia Status: Acute Hospital Course & Plan: Resolved with IV fluids. (5) CKD (chronic kidney disease) stage 4, GFR 15-29 ml/min Status: Chronic Hospital Course & Plan: His creatinine appears slightly improved over his baseline. (6) Acute kidney injury (nontraumatic) Status: Acute Hospital Course & Plan: His creatinine was elevated above his baseline. It is improved with IV fluids. (7) Type II diabetes mellitus Status: Chronic Hospital Course & Plan: He is on chronic treatment with Levemir and NovoLog. His blood sugars have improved on only one-half of his usual Levemir dose (currently 17 units BID). (8) Hyperlipidemia Status: Chronic Hospital Course & Plan: He is on chronic treatment with Crestor. (9) Hypertension Status: Chronic Hospital Course & Plan: He is on chronic treatment with metoprolol, amlodipine, and lisinopril. (10) Hypothyroid Status: Chronic Hospital Course & Plan: He is on chronic treatment with levothyroxine. (11) Daytime somnolence Status: Chronic Hospital Course & Plan: According to his this has been chronic. He has also had oxygen requirement, especially with sleeping/napping. He very well may have sleep apnea and should have sleep study as an outpatient. Departure Weight (Pounds): 226 Weight (Ounces): 5.0 Result Diagram: 05/23/18 0000 05/23/18 0536 Condition: Improved Discharge: Home Discharge Instructions Home Meds Active Scripts Cephalexin 500 Mg Tab (KEFLEX 500 MG TAB) 500 Mg Tablet, 500 MG PO Q12H, #8 TAB Prov:BILLIE MASON DO 05/23/18 Reported Medications Aspirin (ASPIRIN) 81 Mg Tab.chew, 81 MG PO QDAY, TAB.CHEW 05/20/18 Levothyroxine Sodium (LEVOTHYROXINE SODIUM) 75 Mcg Tablet, 75 MCG PO QDAY, TAB 05/20/18 Insulin Detemir 100 UN/ML PEN (Levemir Flextouch) 100 Unit/1 Ml Insuln.pen, 34 SQ BID 05/20/18 Insulin Aspart 100 Un/Ml Pen (NOVOLOG FLEXPEN) 100 Unit/1 Ml Insuln.pen, 12 UNIT SQ TIDAC, ML 05/20/18 Amlodipine Besylate (NORVASC) 10 Mg Tablet, 0.5 TAB PO QDAY, TAB 05/20/18 Gabapentin (GABAPENTIN) 300 Mg Capsule, 300 MG PO DAILY, CAPSULE 05/19/18 Lisinopril (LISINOPRIL) 40 Mg Tablet, 40 MG PO QDAY, TAB 05/13/18 Furosemide (FUROSEMIDE) 20 Mg Tablet, 1 TAB PO QDAY, TAB 05/13/18 Simvastatin (SIMVASTATIN) 40 Mg Tablet, 40 MG PO HS, TAB 01/24/17 Metoprolol Succinate (METOPROLOL SUCCINATE) 50 Mg Tab.er.24h, 1 TAB PO BID, TAB 01/24/17 Hydrochlorothiazide (HYDROCHLOROTHIAZIDE) 25 Mg Tablet, 1 TAB PO QDAY, TAB 01/24/17 Discontinued Reported Medications Insulin Detemir (LEVEMIR) 100 Unit/Ml Injs, 33 UNIT SUBQ BID 05/19/18 Insulin Aspart (NOVOLOG) 100 Unit/Ml Soln, 14 UNIT SUBQ TID 05/19/18 Aspirin (ASPIRIN) 325 Mg Tablet, 325 MG PO BID PRN for PAIN, TAB 01/24/17 Levothyroxine Sodium (SYNTHROID) 88 Mcg Tablet, 100 MCG PO QDAY Take one tablet by mouth every day. 12/06/13 Insulin Aspart (NOVOLOG) 100 Unit/Ml Soln, 12 UNIT SUBQ TID 01/05/18 Insulin Detemir (LEVEMIR) 100 Unit/Ml Injs, 30 UNIT SUBQ BID 01/05/18 Gabapentin (GABAPENTIN) 300 Mg Capsule, 300 MG PO BID, CAPSULE Take one capsule by mouth twice each day. 12/06/13 Discontinued Scripts Sulfamethoxazole/Trimet 800-160 Mg Tab (BACTRIM DS TABLET) 1 Each Tablet, 1 TAB PO Q12H, #20 TAB 0 Refills Prov:NATALY EASLEY MD 05/13/18 Cephalexin 500 Mg Tab (KEFLEX 500 MG TAB) 500 Mg Tablet, 500 MG PO TID, #30 TAB Prov:JANEE GANDHI 01/05/18 Amlodipine Besylate (AMLODIPINE BESYLATE) 5 Mg Tablet, 5 MG PO QDAY, #30 TAB Prov:INDRA LANTIGUA DO 01/28/17 Diet: Diabetic Activity: As Tolerated Copies to: INA MEEHAN MD ; Venous Thromboembolism Antithrombotics Is Pt On Any Antithrombotics?: Yes Problem Qualifiers (1) Type II diabetes mellitus: Diabetes mellitus custodial insulin use: unspecified custodial insulin use status Diabetes mellitus complication status: with neurologic complications Diabetes mellitus complication detail: with unspecified neuropathy Qualified Codes: E11.40 - Type 2 diabetes mellitus with diabetic neuropathy, unspecified (2) Hypertension: Hypertension type: essential hypertension Qualified Codes: I10 - Essential (primary) hypertension BILLIE MASON DO May 23, 2018 13:45
--- NOTE | 2018-05-23 13:57 | Medical Nutrition Therapy ---
Nutrition Anthropometrics Height (Inches): 73.00 Height (Calculated Centimeters: 185.062505 Weight (Pounds): 226 Weight (Calculated Kilograms): 102.654 BMI: 29.9 Ascencion Nutrition Score: Adequate Ascencion Nutrition Risk Score: 16 Dietary Referral Nutrition Risk Factors: Stg 2-4 Press Ulcer, Non-Healing Wound Nutrition Risk Comment: diabetic Physical Findings Physical Appearance: Overweight BMI 25-29 Skin Appearance Skin Appearance: Edema Edema Location Modifier: Edema Location: Type of Edema: Degree of Edema: Gastrointestinal Symptoms GI Symtoms: Nausea Tube Present: Bowel Sounds: Recent Bowel Pattern: Stool Characteristics: Nutritional Diagnosis Nutritional Risk Acuity 2: Chronic Renal Failure, Abcess/Non-Healing Wound Nutritional Risk Acuity 3: Fair Appetite Past Medical History: T2DM, CKD-4, Hyperlipidemia, Hypertension, Hypothyroid, Left BKA, Diabetic foot ulcers Nutritional Acuity: 2-Moderate Nutrition Diagnosis: Increased Nutrient Needs Nutrition Etiology: Physiological Causes Nutrition Problem/Etiology/Sym: Increased Nutrient Needs related to increased demand for nutrients secondary to wound healing and infection AEB low albumin status indicating increased stress and increased metabolic needs. Energy Requirement: 2570 (Clyo-St Jeor: Actual BW X 1.4) Protein Requirement: 82 (Actual BW Kg X .8) Fluid Requirement: 2570 Diet Type: Diabetic Nutrition Intervention: Cont diet as ordered, Check glucose Nutrition Monitoring & Eval Nutrition Goals: Eat 75-100% Meal Nutrition Follow-Up: Fair Intake RD Patient Assessment Time: [address] Assessment Type: RD Re-Assessment Patient Nutrition Acuity: 2-Moderate Follow Up Date: May 26, 2018 Nutritional Comment: 05/20/18 Pt admitted for Diabetic foot ulcers and Cellulitis of right lower extremity. HX of left BKA. Pt is overwt with BMI of 29.9. Glu 337, Low H/H, Alb 2.9, High BUN/Creat. Humilin R SSI, Levemir 17u BID. Pt receiving Diabetes diet with fair appetite and consuming 25-75% of meals. Encourage intake, follow labs, etc. -DRT 10/3 Pt cont on diabetic diet, averageing 52% of meals. Alb has declined to 2.2. BUN and Creatinine cont elevated but has improved to 37 & 2. Will cont to monitor and encourage intake. THALIA HYDE May 23, 2018 13:57
[2018-05-23] MEDS ORDERED: INFLUENZA VIRUS VAC 0.5ML SYR IM ONLY ONE (14:25)
== END 2018-05-23 14:30 | disposition home or self-care (01) | DRG 638 ==
LOC: ER 21:26 → MED 05-19 01:55
PROVIDERS: ADMIT Surgery; ATTEND Surgery
PROC: 0JDQ3ZZ Extraction of Right Foot Subcutaneous Tissue and Fascia, Percutaneous Approach (ICD-10-PCS; principal; 2018-05-19)
PROC: 0JDQ3ZZ Extraction of Right Foot Subcutaneous Tissue and Fascia, Percutaneous Approach (ICD-10-PCS; 2018-05-21)
DX: E11.621 Type 2 diabetes mellitus with foot ulcer (principal); L03.115 Cellulitis of right lower limb; E87.1 Hypo-osmolality and hyponatremia; E87.5 Hyperkalemia; E11.22 Type 2 diabetes mellitus with diabetic chronic kidney disease; I12.9 Hypertensive chronic kidney disease with stage 1 through stage 4 chronic kidney disease, or unspecified chronic kidney disease; N18.4 Chronic kidney disease, stage 4 (severe); N17.9 Acute kidney failure, unspecified; E11.65 Type 2 diabetes mellitus with hyperglycemia; E78.5 Hyperlipidemia, unspecified; E03.9 Hypothyroidism, unspecified; R40.0 Somnolence; E86.0 Dehydration; Z89.512 Acquired absence of left leg below knee; Z23 Encounter for immunization
CPT/HCPCS: 36415; 36416; 71045; 80202; 81001; 82040; 82247; 82310; 82374; 82435; 82565; 82947; 82948; 83605; 84075; 84132; 84155; 84295; 84443; 84450; 84460; 84520; 85025; 85651; 86140; 87040; 90471; 90674; 96361; 96365; 96375; 96376; 97161; 97166; 99291; J0743; J1815; J3370; J7030; J7050; Q0163

== ENCOUNTER 2018-05-27 10:52 | Observation (INO) | payer MEDICARE ==
[~2018-05-27] VITALS: Ht 185.4 cm; Wt 106.3 kg
[~2018-05-27 10:52] MED LIST changes: +AMLO-104 PO; +ASPI81TA94 PO; +INSU100I35 SQ; +INSU100I5 SQ; +LEVO75TA73 PO
[2018-05-27] MEDS ORDERED: NS(*) 0.9% 1000 ML BAG 1,000 ML IV ONE (11:05)
--- NOTE | 2018-05-27 11:20 | ER Report ---
History and Physical Time Seen By MD: 10:58 Hx. of Stated Complaint: low blood sugars at home, pt noncompliant with diabetes, not acting appropriate per family HPI/ROS CHIEF COMPLAINT: low blood sugar HISTORY OF PRESENT ILLNESS: Patient is diabetic male recently discharged from the our hospital on May 23 for diabetic complications. Since he has been home per his the family plan was to let him pass away peacefully. Patient was evaluated yesterday by EMS for hypoglycemia and given D50. At this time he refused transport. Per EMS and patient, overnight patient was noted to have blood sugars in the 40 by the . At this point the admits to administering 20 units of insulin, however states that she thought she was administering insulin to bring up his blood sugar. This statement appears to be in conflict with her previous statement stating that she was trying to help her passed peacefully. EMS was reportedly called by friend or neighbor, and when they arrived, administered D50. Upon ED arrival, patient is awake, though not oriented. He is without complaints. REVIEW OF SYSTEMS: Constitutional: No fever, no chills. Eyes: No discharge. ENT: No sore throat. Cardiovascular: No chest pain, no palpitations. Respiratory: No cough, no shortness of breath. Gastrointestinal: No abdominal pain, no vomiting. Genitourinary: No hematuria. Musculoskeletal: No back pain. Skin: No rashes. Neurological: No headache. Remainder of the 14 system rev: Yes (pt denies pos ros, though possibily limited due to his lack of awareness) Allergies: Coded Allergies: No Known Drug Allergies (Unverified , 05/19/18) Home Meds Active Scripts Cephalexin 500 Mg Tab (KEFLEX 500 MG TAB) 500 Mg Tablet, 500 MG PO Q12H, #8 TAB Prov:BILLIE MASON 05/23/18 Reported Medications Aspirin (ASPIRIN) 81 Mg Tab.chew, 81 MG PO QDAY, TAB.CHEW 05/20/18 Levothyroxine Sodium (LEVOTHYROXINE SODIUM) 75 Mcg Tablet, 75 MCG PO QDAY, TAB 05/20/18 Insulin Detemir 100 UN/ML PEN (Levemir Flextouch) 100 Unit/1 Ml Insuln.pen, 34 SQ BID 05/20/18 Insulin Aspart 100 Un/Ml Pen (NOVOLOG FLEXPEN) 100 Unit/1 Ml Insuln.pen, 12 UNIT SQ TIDAC, ML 05/20/18 Amlodipine Besylate (NORVASC) 10 Mg Tablet, 0.5 TAB PO QDAY, TAB 05/20/18 Gabapentin (GABAPENTIN) 300 Mg Capsule, 300 MG PO DAILY, CAPSULE 05/19/18 Lisinopril (LISINOPRIL) 40 Mg Tablet, 40 MG PO QDAY, TAB 05/13/18 Furosemide (FUROSEMIDE) 20 Mg Tablet, 1 TAB PO QDAY, TAB 05/13/18 Simvastatin (SIMVASTATIN) 40 Mg Tablet, 40 MG PO HS, TAB 01/24/17 Metoprolol Succinate (METOPROLOL SUCCINATE) 50 Mg Tab.er.24h, 1 TAB PO BID, TAB 01/24/17 Hydrochlorothiazide (HYDROCHLOROTHIAZIDE) 25 Mg Tablet, 1 TAB PO QDAY, TAB 01/24/17 Discontinued Reported Medications Insulin Detemir (LEVEMIR) 100 Unit/Ml Injs, 33 UNIT SUBQ BID 05/19/18 Insulin Aspart (NOVOLOG) 100 Unit/Ml Soln, 14 UNIT SUBQ TID 05/19/18 Aspirin (ASPIRIN) 325 Mg Tablet, 325 MG PO BID PRN for PAIN, TAB 01/24/17 Levothyroxine Sodium (SYNTHROID) 88 Mcg Tablet, 100 MCG PO QDAY Take one tablet by mouth every day. 12/06/13 Discontinued Scripts Sulfamethoxazole/Trimet 800-160 Mg Tab (BACTRIM DS TABLET) 1 Each Tablet, 1 TAB PO Q12H, #20 TAB 0 Refills Prov:NATALY EASLEY MD 05/13/18 Cephalexin 500 Mg Tab (KEFLEX 500 MG TAB) 500 Mg Tablet, 500 MG PO TID, #30 TAB Prov:JANEE GANDHI 01/05/18 Amlodipine Besylate (AMLODIPINE BESYLATE) 5 Mg Tablet, 5 MG PO QDAY, #30 TAB Prov:INDRA LANTIGUA DO 01/28/17 Reviewed Nurses Notes: Yes Old Medical Records Reviewed: Yes Hx Smoking: No Smoking Status: Never Smoker Exposure to Second Hand Smoke?: No Hx Substance Use Disorder: No Hx Alcohol Use: No Constitutional Vital Sign - Last 24 Hours 05/27/18 05/27/18 05/27/18 05/27/18 10:53 11:00 11:01 11:15 Temp 98.2 Pulse 53 56 53 Resp 10 11 16 B/P (MAP) 138/79 121/85 (97) Pulse Ox 94 88 O2 Delivery Nasal Cannula O2 Flow Rate 1.0 05/27/18 05/27/18 05/27/18 11:30 11:45 12:00 Pulse 55 55 54 Resp 8 18 B/P (MAP) 139/89 (106) 131/77 (95) Physical Exam General Appearance: Patien is awake. He is oriented to person and hospital but not oriented to exact location, month, or year. He is without complaints and appears tired but without acute distress. Eyes: Pupils equal and round no pallor or injection. ENT, Mouth: mucous membranes dry Respiratory: There are no retractions, lungs are clear to auscultation. Cardiovascular: Regular rate and rhythm. Gastrointestinal: Abdomen is soft and non tender, no masses, bowel sounds normal. Neurological: awake, moves extremities. No focal CN deficit Skin: Warm and dry, no rashes. Musculoskeletal: Extremities are nontender, nonswollen and have full range of motion. Pt is s/p L aka. DIFFERENTIAL DIAGNOSIS: After history and physical exam differential diagnosis was considered for hypoglycemia, sepsis, ich, or other emergent etiology. Medical Decision Making Data Points Result Diagram: 05/27/18 1122 05/27/18 1122 Laboratory Hematology Test 05/27/18 11:22 05/27/18 12:44 Red Blood Count 4.12 M/uL (4.00-5.60) Mean Corpuscular Volume 89.4 fL (80.0-96.0) Mean Corpuscular Hemoglobin 29.8 pg (26.0-33.0) Mean Corpuscular Hemoglobin Concent 33.3 g/dL (32.0-36.0) Red Cell Distribution Width 14.0 % (11.5-14.5) Mean Platelet Volume 7.0 fL (7.2-11.1) Neutrophils (%) (Auto) 84.9 % (39.4-72.5) Lymphocytes (%) (Auto) 8.7 % (17.6-49.6) Monocytes (%) (Auto) 3.5 % (4.1-12.4) Eosinophils (%) (Auto) 1.7 % (0.4-6.7) Basophils (%) (Auto) 1.2 % (0.3-1.4) Nucleated RBC Relative Count (auto) 0.1 /100WBC Neutrophils # (Auto) 6.9 K/uL (2.0-7.4) Lymphocytes # (Auto) 0.7 K/uL (1.3-3.6) Monocytes # (Auto) 0.3 K/uL (0.3-1.0) Eosinophils # (Auto) 0.1 K/uL (0.0-0.5) Basophils # (Auto) 0.1 K/uL (0.0-0.1) Nucleated RBC Absolute Count (auto) 0.01 K/uL Blood Gas Patient Temperature Unknown DEGREES Venous Blood pH 7.39 (7.31-7.41) Venous Blood Partial Pressure CO2 33 mmHg Venous Blood Partial Pressure O2 < 35 mmHg Venous Blood HCO3 20 mmol/L Venous Blood Oxygen Saturation 62 % Venous Blood Base Excess -5 mmol/L Oxygen Liters/Minute Unknown Sodium Level 140 mmol/L (137-145) Potassium Level 4.2 mmol/L (3.5-5.0) Chloride Level 106 mmol/L (98-107) Carbon Dioxide Level 24 mmol/L (22-30) Blood Urea Nitrogen 30 mg/dl (9-21) Creatinine 1.80 mg/dl (0.66-1.25) Glomerular Filtration Rate Calc 37.4 Random Glucose 86 mg/dl (75-110) Lactate 0.7 mmol/L (0.7-2.1) Calcium Level 8.1 mg/dl (8.4-10.2) Total Bilirubin 0.4 mg/dl (0.2-1.3) Aspartate Amino Transf (AST/SGOT) 39 U/L (0-35) Alanine Aminotransferase (ALT/SGPT) 38 U/L (0-56) Alkaline Phosphatase 219 U/L (0-126) Total Protein 6.1 g/dl (6.3-8.2) Albumin 2.9 g/dl (3.5-5.0) Lipase 44 U/L (23-300) Whole Blood Glucose 86 mg/DL (75-110) Chemistry Test 05/27/18 11:22 05/27/18 12:44 White Blood Count 8.2 k/uL (4.5-11.0) Red Blood Count 4.12 M/uL (4.00-5.60) Hemoglobin 12.3 g/dL (14.0-18.0) Hematocrit 36.8 % (42.0-52.0) Mean Corpuscular Volume 89.4 fL (80.0-96.0) Mean Corpuscular Hemoglobin 29.8 pg (26.0-33.0) Mean Corpuscular Hemoglobin Concent 33.3 g/dL (32.0-36.0) Red Cell Distribution Width 14.0 % (11.5-14.5) Platelet Count 272 K/uL (150-450) Mean Platelet Volume 7.0 fL (7.2-11.1) Neutrophils (%) (Auto) 84.9 % (39.4-72.5) Lymphocytes (%) (Auto) 8.7 % (17.6-49.6) Monocytes (%) (Auto) 3.5 % (4.1-12.4) Eosinophils (%) (Auto) 1.7 % (0.4-6.7) Basophils (%) (Auto) 1.2 % (0.3-1.4) Nucleated RBC Relative Count (auto) 0.1 /100WBC Neutrophils # (Auto) 6.9 K/uL (2.0-7.4) Lymphocytes # (Auto) 0.7 K/uL (1.3-3.6) Monocytes # (Auto) 0.3 K/uL (0.3-1.0) Eosinophils # (Auto) 0.1 K/uL (0.0-0.5) Basophils # (Auto) 0.1 K/uL (0.0-0.1) Nucleated RBC Absolute Count (auto) 0.01 K/uL Blood Gas Patient Temperature Unknown DEGREES Venous Blood pH 7.39 (7.31-7.41) Venous Blood Partial Pressure CO2 33 mmHg Venous Blood Partial Pressure O2 < 35 mmHg Venous Blood HCO3 20 mmol/L Venous Blood Oxygen Saturation 62 % Venous Blood Base Excess -5 mmol/L Oxygen Liters/Minute Unknown Glomerular Filtration Rate Calc 37.4 Lactate 0.7 mmol/L (0.7-2.1) Calcium Level 8.1 mg/dl (8.4-10.2) Total Bilirubin 0.4 mg/dl (0.2-1.3) Aspartate Amino Transf (AST/SGOT) 39 U/L (0-35) Alanine Aminotransferase (ALT/SGPT) 38 U/L (0-56) Alkaline Phosphatase 219 U/L (0-126) Total Protein 6.1 g/dl (6.3-8.2) Albumin 2.9 g/dl (3.5-5.0) Lipase 44 U/L (23-300) Whole Blood Glucose 86 mg/DL (75-110) EKG/Imaging EKG Interpretation 12 lead EKG: Rhythm: sinus bradycardia [place]: normal QRS: borderline - 100 ST segments: normal no st elevation Monitor Interpretation: Sinus Bradycardia ED Course/Re-evaluation Clinical Indication for ER IV: Hydration ED Course Patient presents via EMS after hypoglycemia at home. In ED patient, while awake, is not alert or oriented. Patient has 2 repeat episodes of hypoglycemia despite good oral intake in the emergency department. He does not have focal findings c oncerning for sepsis, ACS, or other clear organic etiology. Of note, patient's admits to administering insulin 20 units at home when his blood sugar was in the 40s. She states she was confused about this and thought insulin was to be administered for low blood sugar because she thought the hospital was doing the same during his last hospitalization. On review of hospital notes this, of course, does not appear to be the case and patient has had long-standing diabetes. also states that she felt he was sent home to since his blood sugars were in the 250s. When patient is interviewed alone, he denies depression or suicidality and states he wants to live. When I discussed with the family patient's need for admission to further evaluate underlying hypoglycemia, full he was initially reticent, his brother advocated very strongly for him to come in for further evaluation and stabilization of his blood sugars. Ultimately, patient agrees to this. Of note, due to the confusing statements by , EMS has involved the local police. I am initiating report to adult protective services at this point as well. Decision to Disposition Date: May 27, 2018 Decision to Disposition Time: 13:15 Depart Departure Latest Vital Signs Vital Signs Date Time Temp Pulse Resp B/P (MAP) Pulse Ox O2 Delivery O2 Flow Rate FiO2 05/27/18 12:00 54 18 131/77 (95) 05/27/18 11:01 1.0 05/27/18 11:00 88 05/27/18 10:53 98.2 Nasal Cannula Impression: Primary Impression: Hypoglycemia Condition: Improved Disposition: Admitted from ER Referrals: INA MEEHAN MD (PCP) NABOR ORTIZ MD May 27, 2018 11:20
[2018-05-27 11:30] LABS: PLATELET COUNT, AUTOMATED 272 K/uL (150-450)
[2018-05-27] MEDS ORDERED: EMS NS 0.9%(*) 1000 ML BAG 1,000 ML IV ONE (11:30)
--- NOTE | 2018-05-27 11:41 | EKG ---
FACILITY: [facility] [place] PATIENT NAME: SIERRA CARLSON : [id number] MR: [id number] V: [id number] EXAM DATE: ORDERING PHYSICIAN: NABOR ORTIZ TECHNOLOGIST: SENIA Test Reason : SOB Blood Pressure : / mmHG Vent. Rate : 053 BPM Atrial Rate : 053 BPM P-R Int : 170 ms QRS Dur : 100 ms QT Int : 500 ms P-R-T Axes : 039 -11 035 degrees QTc Int : 469 ms Sinus bradycardia Otherwise normal ECG When compared with ECG of 24-JAN-2017 15:27, Vent. rate has decreased BY [address] no longer depressed in Lateral leads Confirmed by Trent Jo ([id number]) on 05/27/2018 4:23:23 PM Referred By: DIANA Confirmed By:Trent Amaro
[2018-05-27] MEDS ORDERED: DEXTROSE 50% 50 ML SYR IVP ONE (12:15)
--- NOTE | 2018-05-27 12:16 | RADIOLOGY IMAGING REPORT ---
FACILITY: [facility] [place] PATIENT NAME: To Booker : 1945 MR: [id number] V: [id number] EXAM DATE: ORDERING PHYSICIAN: NABOR ORTIZ TECHNOLOGIST: Location: [facility] Patient: To Booker : 1945 Visit/Account:[id number] Date of Sevice: 05/27/2018 CHEST SINGLE AP HISTORY: Shortness of breath. COMPARISON: 05/19/2018. FINDINGS: Lines/tubes: None. Lungs/pleura: Mild patchy opacity in the left lung base is similar compared with 05/19/2018 and may r epresent atelectasis or infiltrate. Questionable small left pleural effusion. No pneumothorax. Heart: Negative. Mediastinum: Negative. Bony structures/body wall: Negative. IMPRESSION: Patchy opacities in the left lung base with possible small left pleural effusion. The dif ferential includes pneumonia, aspiration, pulmonary infarction, and atelectasis. Report Dictated By: Ez Guerra MD at 05/27/2018 12:10 PM Report E-Signed By: Ez Guerra MD at 05/27/2018 12:12 PM [id number]
[2018-05-27 14:18] VITALS: BP 157/94
[2018-05-27] MEDS ORDERED: ONDANSETRON 4 MG/2 ML VIAL IVP PRN (15:30)
[2018-05-27] MEDS ORDERED: ACETAMINOPHEN 325 MG TAB PO PRN (15:30)
--- NOTE | 2018-05-27 15:58 | History & Physical ---
History of Present Illness Chief Complaint hypoglycemia History of Present Illness 72M admitted for observation after presentation to [facility] ER with hypoglycemia. PMHx DM takes Lantus and meal time insulin. Recently discharged 05.23.2018 after treatment for diabetic foot wound and infection. EMS called by neighbor? and after they showed up reportedly did not want to allow them in. Found patient unresponsive with glucose in 40's. Glucose came up with infusions of dextrose but remain labile. Patient admitted for monitoring of glucose. reported to ER staff that she was giving insulin to help raise his blood sugar as well as other odd statements. has been previously managing insulin for about 10 years. History Problems: (1) Benign hypertension (2) CKD (chronic kidney disease) stage 4, GFR 15-29 ml/min Status: Chronic Home Meds Active Scripts Cephalexin 500 Mg Tab (KEFLEX 500 MG TAB) 500 Mg Tablet, 500 MG PO Q12H, #8 TAB Prov:BILLIE MASON DO 05/23/18 Reported Medications Aspirin (ASPIRIN) 81 Mg Tab.chew, 81 MG PO QDAY, TAB.CHEW 05/20/18 Levothyroxine Sodium (LEVOTHYROXINE SODIUM) 75 Mcg Tablet, 75 MCG PO QDAY, TAB 05/20/18 Insulin Detemir 100 UN/ML PEN (Levemir Flextouch) 100 Unit/1 Ml Insuln.pen, 34 SQ BID 05/20/18 Insulin Aspart 100 Un/Ml Pen (NOVOLOG FLEXPEN) 100 Unit/1 Ml Insuln.pen, 12 UNIT SQ TIDAC, ML 05/20/18 Amlodipine Besylate (NORVASC) 10 Mg Tablet, 0.5 TAB PO QDAY, TAB 05/20/18 Gabapentin (GABAPENTIN) 300 Mg Capsule, 300 MG PO DAILY, CAPSULE 05/19/18 Lisinopril (LISINOPRIL) 40 Mg Tablet, 40 MG PO QDAY, TAB 05/13/18 Furosemide (FUROSEMIDE) 20 Mg Tablet, 1 TAB PO QDAY, TAB 05/13/18 Simvastatin (SIMVASTATIN) 40 Mg Tablet, 40 MG PO HS, TAB 01/24/17 Metoprolol Succinate (METOPROLOL SUCCINATE) 50 Mg Tab.er.24h, 1 TAB PO BID, TAB 01/24/17 Hydrochlorothiazide (HYDROCHLOROTHIAZIDE) 25 Mg Tablet, 1 TAB PO QDAY, TAB 01/24/17 Discontinued Reported Medications Insulin Detemir (LEVEMIR) 100 Unit/Ml Injs, 33 UNIT SUBQ BID 05/19/18 Insulin Aspart (NOVOLOG) 100 Unit/Ml Soln, 14 UNIT SUBQ TID 05/19/18 Aspirin (ASPIRIN) 325 Mg Tablet, 325 MG PO BID PRN for PAIN, TAB 01/24/17 Levothyroxine Sodium (SYNTHROID) 88 Mcg Tablet, 100 MCG PO QDAY Take one tablet by mouth every day. 12/06/13 Discontinued Scripts Sulfamethoxazole/Trimet 800-160 Mg Tab (BACTRIM DS TABLET) 1 Each Tablet, 1 TAB PO Q12H, #20 TAB 0 Refills Prov:NATALY EASLEY MD 05/13/18 Cephalexin 500 Mg Tab (KEFLEX 500 MG TAB) 500 Mg Tablet, 500 MG PO TID, #30 TAB Prov:JANEE GANDHI 01/05/18 Amlodipine Besylate (AMLODIPINE BESYLATE) 5 Mg Tablet, 5 MG PO QDAY, #30 TAB Prov:INDRA LANTIGUA DO 01/28/17 Allergies: Coded Allergies: No Known Drug Allergies (Unverified , 05/19/18) Patient History: FH: stroke FATHER, , Age:96 FHx: diabetes mellitus FATHER, , Age:96 Hx Smoking: No Smoking Status: Never Smoker Exposure to Second Hand Smoke?: No Caffeine Intake: Coffee, Tea Caffeine/Cups Per Day: 1-3 Hx Alcohol Use: No Hx Substance Use Disorder: No Social Drug Use: Never Review of Systems All Systems Reviewed/Normal: Yes, Except as Noted Neurological: Confusion, Weakness, Dizziness, Slurred Speech Cardiovascular: No Chest Pain Respiratory: No Shortness of Breath Gastrointestinal: No Nausea, No Vomiting Exam Vital Signs Vital Signs Date Time Temp Pulse Resp B/P (MAP) Pulse Ox O2 Delivery O2 Flow Rate FiO2 05/27/18 14:21 93 Nasal Cannula 2.0 05/27/18 14:18 97.6 66 18 157/94 (115) General Appearance: No Acute Distress (slightly confused, some slurring of words) Neuro: No Gross deficits Eyes: PERRLA ENT: Normal Neck: No Masses Cardiovascular: Normal Rhythm & Peripheral Pulses Respiratory: No Respiratory Distress GI: Abd Soft and Non-Tender Musculoskeletal: No Weakness/Pain Extremities: Soft and Non Tender, Warm, Pulses, Perfused; No Edema Integumentary: Skin Intact without Lesion / Mass (foot improved., L BKA) Medical Decision Making Data Points Result Diagram: 05/27/18112105/27/181121 Assessment and Plan Problems: (1) Hypoglycemia Status: Acute Assessment & Plan: Secondary to exogenous insulin. Will educate family and patient. Accuchecks q2h until stable > 120 then will decrease frequency. Holding insulin at this time. (2) Cellulitis of right lower extremity Status: Acute Assessment & Plan: Finished his Keflex, clinically improved/resolved. (3) Hypothyroid Status: Chronic Assessment & Plan: Continue levothyroxine. (4) CKD (chronic kidney disease) stage 4, GFR 15-29 ml/min Status: Chronic Assessment & Plan: Worsening of CKD could decrease insulin requirements. Cr slightly better than at discharge. (5) Benign hypertension Assessment & Plan: Continue losartan, HCTZ, metoprolol. Central Venous Access Medical Necessity for Access: Hemodynamic Monitoring, IV Access, Medication Administration Venous Thromboembolism Antithrombotics Is Pt On Any Antithrombotics?: Yes Exam Sepsis Risk: No Definite Risk CATES BILLIE FOX DO May 27, 2018 15:57
[2018-05-27 19:20] VITALS: BP 155/80
[2018-05-27] MEDS ORDERED: SIMVASTATIN 40 MG TAB PO SCH (21:00)
[2018-05-27 23:44] VITALS: BP 162/84
[2018-05-28] MEDS: ACYCLOVIR 200 MG CAP PO SCH ×3 (02:23→13:10)
[2018-05-28] MEDS ORDERED: LEVOTHYROXINE SOD 0.075 MG TAB PO SCH (06:00)
[2018-05-28 06:19] LABS: PLATELET COUNT, AUTOMATED 237 K/uL (150-450)
[2018-05-28 06:48] VITALS: BP 160/84
[2018-05-28] MEDS ORDERED: ACYC-1 PO (08:55)
[2018-05-28] MEDS ORDERED: LEVI SUBQ (08:55)
--- NOTE | 2018-05-28 08:58 | Hospitalist Depart ---
Discharge Summary Reason for Hosp/Final Diag: (1) Hypoglycemia Status: Acute Hospital Course & Plan: Secondary to exogenous insulin. We did educate the patient and his spouse regarding appropriate insulin administration. They will record his home glucose levels and follow up in the [facility] later this week. (2) Cellulitis of right lower extremity Status: Acute Hospital Course & Plan: Resolved on Keflex. (3) Hypothyroid Status: Chronic Hospital Course & Plan: He is on chronic treatment with levothyroxine. (4) Benign hypertension Hospital Course & Plan: He is on chronic treatment with losartan, HCTZ, metoprolol. (5) CKD (chronic kidney disease) stage 4, GFR 15-29 ml/min Status: Chronic Departure Latest Vital Signs v Vital Signs 05/27/18 05/28/18 23:44 06:48 Temp 98.2 Pulse 69 Resp 16 B/P (MAP) 160/84 (109) Pulse Ox 88 O2 Delivery Nasal Cannula O2 Flow Rate 1.0 Weight (Pounds): 234 Weight (Ounces): 5.0 Result Diagram: 05/28/1854705/28/18547 Condition: Improved Discharge: Home, Self Care Follow-Up Labs: Finger Sticks Discharge Instructions Home Meds Active Scripts Acyclovir (ACYCLOVIR) 200 Mg Capsule, 4 TAB PO 5XD, #140 CAPSULE Prov:INDRA LANTIGUA DO 05/28/18 Insulin Detemir (LEVEMIR) 100 Unit/Ml Injs, 25 UNIT SUBQ BID, #10 ML Prov:INDRA LANTIGUA DO 05/28/18 Reported Medications Aspirin (ASPIRIN) 81 Mg Tab.chew, 81 MG PO QDAY, TAB.CHEW 05/20/18 Levothyroxine Sodium (LEVOTHYROXINE SODIUM) 75 Mcg Tablet, 75 MCG PO QDAY, TAB 05/20/18 Insulin Aspart 100 Un/Ml Pen (NOVOLOG FLEXPEN) 100 Unit/1 Ml Insuln.pen, 12 UNIT SQ TIDAC, ML 05/20/18 Amlodipine Besylate (NORVASC) 10 Mg Tablet, 0.5 TAB PO QDAY, TAB 05/20/18 Gabapentin (GABAPENTIN) 300 Mg Capsule, 300 MG PO DAILY, CAPSULE 05/19/18 Lisinopril (LISINOPRIL) 40 Mg Tablet, 40 MG PO QDAY, TAB 9/23/18 Furosemide (FUROSEMIDE) 20 Mg Tablet, 1 TAB PO QDAY, TAB 05/13/18 Simvastatin (SIMVASTATIN) 40 Mg Tablet, 40 MG PO HS, TAB 01/24/17 Metoprolol Succinate (METOPROLOL SUCCINATE) 50 Mg Tab.er.24h, 1 TAB PO BID, TAB 01/24/17 Hydrochlorothiazide (HYDROCHLOROTHIAZIDE) 25 Mg Tablet, 1 TAB PO QDAY, TAB 01/24/17 Discontinued Reported Medications Insulin Detemir 100 UN/ML PEN (Levemir Flextouch) 100 Unit/1 Ml Insuln.pen, 34 SQ BID 05/20/18 Discontinued Scripts Cephalexin 500 Mg Tab (KEFLEX 500 MG TAB) 500 Mg Tablet, 500 MG PO Q12H, #8 TAB Prov:BILLIE MASON DO 05/23/18 Sulfamethoxazole/Trimet 800-160 Mg Tab (BACTRIM DS TABLET) 1 Each Tablet, 1 TAB PO Q12H, #20 TAB 0 Refills Prov:NATALY EASLEY MD 05/13/18 Diet: Diabetic Activity: As Tolerated Venous Thromboembolism Antithrombotics Is Pt On Any Antithrombotics?: Yes INDRA LANTIGUA DO May 28, 2018 08:58
[2018-05-28] MEDS ORDERED: amLODIPine BESYL(*) 5 MG TAB PO SCH (09:00)
[2018-05-28] MEDS: INSULIN HUM LISPRO 100 UN/ML 3 ML VIAL SUBQ PRN ×2 (09:00→13:09)
[2018-05-28] MEDS ORDERED: INSULIN DETEMIR 100 U/ML 3 ML PEN SUBQ SCH (09:00)
[2018-05-28] MEDS ORDERED: ASPIRIN 81 MG ENTERIC COATED PO SCH (09:00)
[2018-05-28] MEDS ORDERED: INSULIN DETEMIR 100 UN/ML VIAL SUBQ SCH (09:00)
[2018-05-28] MEDS ORDERED: ENOXAPARIN 30 MG/0.3 ML SYR SC SCH (09:00)
[2018-05-28] MEDS ORDERED: HYDROCHLOROTHIAZIDE 25 MG TAB PO SCH (09:00)
[2018-05-28] MEDS ORDERED: LISINOPRIL 20 MG TAB PO SCH (09:00)
[2018-05-28] MEDS ORDERED: GABAPENTIN 300 MG CAP PO SCH (09:00)
[2018-05-28] MEDS ORDERED: FUROSEMIDE 20 MG TAB PO SCH (09:00)
[2018-05-28] MEDS ORDERED: METOPROLOL SUCC XL 50 MG TABCR 50 MG TAB.ER.24H PO SCH (09:00)
--- NOTE | 2018-05-28 10:03 | Antimicrobial Stewardship ---
Antimicrobial Stewardship Empiricly appropriate: Yes Support empiric regimen: Yes Comment Acyclovir treatment for Herpes Zoster on R flank Renal/Hepatic dosing: Yes Comment Pt should be on 800mg po 5 times per day for 7-10 days for treatment of H. zoster, MD will correct on discharge. Pt with CrCl ~44ml/min--> no need for renal adjustment Determine cumulative duration: Today is day 1 Determine standard duration: 7-10 days Comment Pt with H. zoster on his right flank, on acyclovir 800mg po 5 times per day to complete a 7-10 day course. Allyssa Kelly, PharmD, OP ALLYSSA KELLY May 28, 2018 10:03
[2018-05-28 11:47] VITALS: BP 149/78
[2018-05-28 13:14] VITALS: Ht 185.4 cm; Wt 106.3 kg
[2018-05-29] MEDS ORDERED: INFLUENZA VIRUS VAC 0.5ML SYR IM ONLY ONE (09:00)
== END 2018-05-28 15:30 | disposition home health service (06) ==
LOC: ER 11:05 → MED 13:49
PROVIDERS: ADMIT Internal Medicine; ATTEND Internal Medicine
DX: E11.649 Type 2 diabetes mellitus with hypoglycemia without coma (principal); I10 Essential (primary) hypertension; I12.9 Hypertensive chronic kidney disease with stage 1 through stage 4 chronic kidney disease, or unspecified chronic kidney disease; E11.22 Type 2 diabetes mellitus with diabetic chronic kidney disease; N18.4 Chronic kidney disease, stage 4 (severe); E03.9 Hypothyroidism, unspecified; L03.115 Cellulitis of right lower limb
CPT/HCPCS: 36415; 36416; 71045; 82803; 82948; 83605; 83690; 84443; 85025; 93005; 96360; 96361; 96372; 97161; 97597; 99284; A9270; G0378; J1650; J1815; 82040; 82247; 82310; 82374; 82435; 82565; 82947; 84075; 84132; 84155; 84295; 84450; 84460; 84520